=== PATIENT | female | born 1950 | race Asian ===

== ENCOUNTER 2017-01-12 13:17 | Outpatient (CLI) | payer MEDICARE | END 2017-01-12 13:18 | disposition home or self-care (01) | DX: Z12.31 Encounter for screening mammogram for malignant neoplasm of breast (principal) ==

== ENCOUNTER 2017-06-15 09:30 | Outpatient (CLI) | payer MEDICARE ==
[2017-06-15 14:14] LABS: ALBUMIN/GLOBULIN RATIO 1.4 (1.0-2.2); BILIRUBIN,TOTAL 0.6 mg/dL (0.2-1.0); BUN - BLOOD UREA NITROGEN 16 mg/dL (6-20); CALCIUM 9.4 mg/dL (8.5-10.3); CARBON DIOXIDE - CO2 29 mmol/L (21-32); CHLORIDE 102 mmol/L (101-111); CHOLESTEROL 225 mg/dL; CREATININE 0.8 mg/dL (0.4-1.0); GFR - MDRD 72 (>89); GLUCOSE 98 mg/dL (70-100); HDL CHOLESTEROL 32 mg/dL; LDL/HDL RATIO 5.1 (<4.4); POTASSIUM 3.8 mmol/L (3.5-5.0); SODIUM 140 mmol/L (135-145); TOTAL PROTEIN 7.2 g/dL (6.7-8.2); TRIGLYCERIDES 150 mg/dL; VLDL CHOLESTEROL 30 mg/dL
== END 2017-06-15 09:31 | disposition home or self-care (01) ==
LOC: LAB.WCP 09:30
PROVIDERS: ATTEND Family Medicine
DX: K30 Functional dyspepsia (principal); I10 Essential (primary) hypertension; E78.5 Hyperlipidemia, unspecified
CPT/HCPCS: 36415; 80053; 80061

== ENCOUNTER 2017-09-10 16:42 | Outpatient (CLI) | payer MEDICARE ==
[2017-09-10 13:48] LABS: ALBUMIN/GLOBULIN RATIO 1.2 (1.0-2.2); BILIRUBIN,TOTAL 0.8 mg/dL (0.2-1.0); CALCIUM 9.7 mg/dL (8.5-10.3); CREATININE 0.8 mg/dL (0.4-1.0); POTASSIUM 4.5 mmol/L (3.5-5.0); TOTAL PROTEIN 7.9 g/dL (6.7-8.2)
== END 2017-09-10 16:43 | disposition home or self-care (01) ==
LOC: LAB.WCP 16:42
PROVIDERS: ATTEND Family Medicine
DX: E88.81 Metabolic syndrome and other insulin resistance (principal); I10 Essential (primary) hypertension; E78.9 Disorder of lipoprotein metabolism, unspecified
CPT/HCPCS: 36415; 80053

== ENCOUNTER 2018-03-21 08:00 | Outpatient (CLI) | payer MEDICARE ==
[2018-03-21 13:52] LABS: ALBUMIN 3.8 g/dL (3.2-5.5); ALKALINE PHOSPHATASE 95 IU/L (42-121); ALT ALANINE AMINOTRANSFERASE 20 IU/L (10-60); AST ASPARTATE AMINOTRANSFERASE 25 IU/L (10-42); BUN - BLOOD UREA NITROGEN 10 mg/dL (6-20); CALCIUM 9.5 mg/dL (8.5-10.3); CARBON DIOXIDE - CO2 30 mmol/L (21-32); CHLORIDE 105 mmol/L (101-111); CHOL/HDL RATIO 7.1 (<4.4); CHOLESTEROL 240 mg/dL; CREATININE 0.7 mg/dL (0.4-1.0); GFR - MDRD 83 (>89); GLUCOSE 94 mg/dL (70-100); HDL CHOLESTEROL 34 mg/dL; LDL CHOLESTEROL,CALCULATED 148 mg/dL; LDL/HDL RATIO 4.4 (<4.4); SODIUM 140 mmol/L (135-145); TOTAL PROTEIN 7.6 g/dL (6.7-8.2); URIC ACID 6.9 mg/dL (2.6-7.2); VLDL CHOLESTEROL 58 mg/dL
== END 2018-03-21 08:01 | disposition home or self-care (01) ==
LOC: LAB.WCP 08:00
PROVIDERS: ATTEND Family Medicine
DX: R60.0 Localized edema (principal); E88.81 Metabolic syndrome and other insulin resistance; R74.8 Abnormal levels of other serum enzymes; I10 Essential (primary) hypertension; E78.5 Hyperlipidemia, unspecified
CPT/HCPCS: 36415; 80053; 80061; 83721; 84550

== ENCOUNTER 2018-05-02 11:15 | Outpatient (CLI) | payer MEDICARE ==
--- NOTE | 2018-05-04 09:25 | Mammography Report ---
Procedure Date: 05/02/2018 Accession Number: [id number] / [id number] Procedure: MGN - Screening Mammo Dig Bilat CPT Code: FULL RESULT: EXAM: Screening Mammo Dig Bilat DATE: 05/02/2018 11:44 AM CLINICAL HISTORY: 68-year-old female presents for screening mammography. TECHNIQUE: Bilateral CC and MLO views were obtained. COMPARISON: 01/12/2017, 12/20/2014, 12/14/2013, 12/06/2012. FINDINGS: The breasts demonstrate heterogeneously dense fibroglandular parenchyma bilaterally. Coarse typically benign calcifications are seen in the right breast. Coarse typically benign calcifications are also seen in the left breast. No suspicious masses, clustered microcalcifications, or regions of architectural distortion are identified. IMPRESSION: Benign findings RECOMMENDATION: Routine annual screening unless otherwise clinically indicated. BIRADS CATEGORY 2: Benign findings STANDARD QUALIFYING STATEMENTS: 1. This examination was reviewed with the aid of Computer-Aided Detection (CAD). 2. A negative or benign imaging report should not delay biopsy if clinically suspicious findings are present. Consider surgical consultation if warrented. More than 5% of cancers are not identified by imaging. 3. Dense breasts may obscure an underlying neoplasm.
== END 2018-05-02 11:16 | disposition home or self-care (01) ==
LOC: DI.N 11:15
PROVIDERS: ATTEND Family Medicine
DX: Z12.31 Encounter for screening mammogram for malignant neoplasm of breast (principal)
CPT/HCPCS: 77067

== ENCOUNTER 2018-10-03 08:00 | Outpatient (CLI) | payer MEDICARE ==
[2018-10-03 15:30] LABS: ALBUMIN 4.3 g/dL (3.2-5.5); ALBUMIN/GLOBULIN RATIO 1.4 (1.0-2.2); BILIRUBIN,TOTAL 0.8 mg/dL (0.2-1.0); CALCIUM 9.5 mg/dL (8.5-10.3); CREATININE 0.8 mg/dL (0.4-1.0); TOTAL PROTEIN 7.4 g/dL (6.7-8.2)
== END 2018-10-03 23:59 | disposition home or self-care (01) ==
LOC: LAB.WCP 08:00
PROVIDERS: ATTEND Family Medicine
DX: E78.5 Hyperlipidemia, unspecified (principal)
CPT/HCPCS: 36415; 80053

== ENCOUNTER 2018-12-13 15:05 | Outpatient (CLI) | payer MEDICARE ==
--- NOTE | 2018-12-15 08:36 | DEXA Report ---
Reason: ASYMPTOMATIC POSTMENOPAUSAL STATUS Procedure Date: 12/13/2018 Accession Number: [id number] / [id number] Procedure: DEX - Dexa Spine and/or Hip CPT Code: FULL RESULT: EXAM: Dexa Spine and/or Hip DATE: 12/13/2018 3:39 PM CLINICAL HISTORY: ASYMPTOMATIC POSTMENOPAUSAL STATUS TECHNIQUE: Dual energy x-ray absorptiometry (DXA) was performed on a Forward Talent System. Regions measured are the AP Spine, femoral neck, and if needed forearm. COMPARISON: None. In accordance with the International Society for Clinical Densitometry (ISCD) guidelines, data from previous exams may be reanalyzed using current recommendations and techniques. This is done to allow a more accurate basis for comparison with the current study. FINDINGS: The data for the lumbar spine is as follows: BMD (g/cm/cm) T-SCORE Z-SCORE REGION L1 0.772 -3.0 -1.3 L2 0.910 -2.4 -0.7 L3 0.885 -2.6 -0.9 L4 0.960 -2.0 -0.3 TOTAL 0.879 -2.5 -0.8 NOTE: All evaluable vertebrae are used for classification The data for the hip is as follows: BMD (g/cm/cm) T-SCORE Z-SCORE REGION Neck 0.720 -2.3 -0.6 TOTAL 0.784 -1.8 -0.3 NOTE: The femoral neck or total proximal femur, whichever is lowest, is used for classification. IMPRESSION: THE WHO CLASSIFICATION BASED ON THE INTERNATIONAL REFERENCE STANDARD IS OSTEOPOROSIS. THE FRACTURE RISK IS HIGH. RECOMMENDATION: Patients with diagnosis of osteoporosis or osteopenia should have regular bone mineral density assessment. For those eligible for Medicare, routine testing is allowed once every 2 years. Testing frequency can be increased for patients who have rapidly progressing disease or for those who are receiving medical therapy to restore bone mass. COMMENT: World Health Organization (WHO) definitions for osteoporosis and osteopenia: NORMAL BMD: T-score at -1.0 or higher, fracture risk is low OSTEOPENIA BMD: T-score between -1.0 and -2.5, fracture risk is increased. OSTEOPOROSIS BMD: T-score at -2.5 or lower, fracture risk is high. National Osteoporosis Foundation recommends: 1. Obtain adequate dietary calcium (at least 1200 mg per day) and vitamin D (400-800 international units per day). 2. Participate, as appropriate, in regular weightbearing and muscle-strengthening exercise. 3. Avoid tobacco use and reduce alcohol and caffeine intake. 4. For more detailed information see the website at www.NOF.org.
== END 2018-12-13 15:06 | disposition home or self-care (01) ==
LOC: DI 15:05
PROVIDERS: ATTEND Family Medicine
DX: M81.0 Age-related osteoporosis without current pathological fracture (principal)
CPT/HCPCS: 77080

== ENCOUNTER 2019-04-26 09:07 | Outpatient (CLI) | payer MEDICARE ==
[2019-04-26 12:08] LABS: BASOPHILS # (AUTO) 0.1 10^3/uL (0.0-0.1); BASOPHILS % (AUTO) 1.1 %; EOSINOPHILS # (AUTO) 0.3 10^3/uL (0.0-0.7); EOSINOPHILS % (AUTO) 4.5 %; HGB - HEMOGLOBIN 12.9 g/dL (12.0-16.0); LYMPHOCYTES # (AUTO) 3.8 10^3/uL (1.5-3.5); LYMPHOCYTES % (AUTO) 56.6 %; MEAN CORPUSCULAR HEMOGLOBIN 32.3 pg (27.0-31.0); MEAN CORPUSCULAR HGB CONC 32.6 g/dL (32.0-36.0); MEAN CORPUSCULAR VOLUME 99.2 fL (81.0-99.0); MEAN PLATELET VOLUME 11.1 fL (7.9-10.8); MONOCYTES # (AUTO) 0.4 10^3/uL (0.0-1.0); MONOCYTES % (AUTO) 6.5 %; NEUTROPHILS # (AUTO) 2.1 10^3/uL (1.5-6.6); NEUTROPHILS % (AUTO) 31.1 %; PLT - PLATELET COUNT 208 10^3/uL (130-450); RED BLOOD COUNT 3.99 10^6/uL (4.20-5.40); RED CELL DISTRIBUTION WIDTH 11.9 % (12.0-15.0); WHITE BLOOD COUNT 6.6 x10^3/uL (4.8-10.8)
[2019-04-26 12:25] LABS: ALBUMIN 4.3 g/dL (3.2-5.5); ALBUMIN/GLOBULIN RATIO 1.4 (1.0-2.2); ALKALINE PHOSPHATASE 87 IU/L (42-121); ALT ALANINE AMINOTRANSFERASE 17 IU/L (10-60); AST ASPARTATE AMINOTRANSFERASE 22 IU/L (10-42); BILIRUBIN,TOTAL 0.8 mg/dL (0.2-1.0); BUN - BLOOD UREA NITROGEN 16 mg/dL (6-20); CALCIUM 9.7 mg/dL (8.5-10.3); CARBON DIOXIDE - CO2 27 mmol/L (21-32); CHLORIDE 108 mmol/L (101-111); CHOL/HDL RATIO 4.3 (<4.4); CHOLESTEROL 138 mg/dL; CREATININE 0.8 mg/dL (0.4-1.0); GFR - MDRD 71 (>89); GLUCOSE 96 mg/dL (70-100); HDL CHOLESTEROL 32 mg/dL; LDL CHOLESTEROL,CALCULATED 82 mg/dL; LDL/HDL RATIO 2.6 (<4.4); SODIUM 145 mmol/L (135-145); TOTAL PROTEIN 7.4 g/dL (6.7-8.2); URIC ACID 6.8 mg/dL (2.6-7.2); VLDL CHOLESTEROL 24 mg/dL
== END 2019-04-26 09:08 | disposition home or self-care (01) ==
LOC: LAB.WCP 09:07
PROVIDERS: ATTEND Family Medicine
DX: I10 Essential (primary) hypertension (principal); E78.5 Hyperlipidemia, unspecified; R73.01 Impaired fasting glucose; D64.9 Anemia, unspecified
CPT/HCPCS: 36415; 80053; 80061; 83721; 84443; 84550; 85025

== ENCOUNTER 2019-05-05 13:05 | Outpatient (CLI) | payer MEDICARE | END 2019-05-05 23:59 | disposition home or self-care (01) | LOC: LAB.WCP 13:05 | PROVIDERS: ATTEND Family Medicine | DX: M81.0 Age-related osteoporosis without current pathological fracture (principal) | CPT/HCPCS: 36415; 82306 ==

== ENCOUNTER 2019-05-15 11:07 | Outpatient (CLI) | payer MEDICARE ==
--- NOTE | 2019-05-16 08:39 | Mammography Report ---
Reason: SCREENING MAMMO Procedure Date: 05/15/2019 Accession Number: [id number] / [id number] Procedure: MGN - Screening Mammo Dig Bilat CPT Code: FULL RESULT: EXAM: Screening Mammo Dig Bilat DATE: 05/15/2019 11:35 AM CLINICAL HISTORY: Screening encounter. TECHNIQUE: (B) - Bilateral CC and MLO views were obtained. COMPARISON: 05/02/2018 through 12/14/2013. PARENCHYMAL PATTERN: (A) - The breast(s) demonstrate(s) scattered fibroglandular densities. FINDINGS: There are no suspicious masses, calcifications, or areas of distortion. IMPRESSION: Negative examination. BI-RADS category 1. RECOMMENDATION: (ANNUAL) - Recommend routine annual screening mammography. BI-RADS CATEGORY: (1) - Negative. STANDARD QUALIFYING STATEMENTS: 1. This examination was not reviewed with the aid of Computer-Aided Detection (CAD). 2. A negative or benign imaging report should not preclude biopsy if clinically suspicious findings are present. 3. Dense breasts may obscure an underlying neoplasm. 4. This examination was reviewed without the aid of 3D breast imaging (tomosynthesis).
== END 2019-05-15 11:08 | disposition home or self-care (01) ==
LOC: DI.N 11:07
PROVIDERS: ATTEND Family Medicine
DX: Z12.31 Encounter for screening mammogram for malignant neoplasm of breast (principal)
CPT/HCPCS: 77067

== ENCOUNTER 2019-11-20 07:31 | Outpatient (CLI) | payer MEDICARE ==
--- NOTE | 2019-11-21 08:22 | Ultrasound Report ---
Reason: GROIN PAIN LT Procedure Date: 11/20/2019 Accession Number: [id number] / [id number] Procedure: US - Pelvic Limited or F/U CPT Code: Final Report FULL RESULT: EXAM: Limited pelvic ultrasound EXAM DATE: 11/20/2019 08:54 AM. CLINICAL HISTORY: Groin pain, left. COMPARISON: None. TECHNIQUE: Real-time scanning was performed of the left groin with static images obtained. FINDINGS: Scan focused on the left inguinal canal area. No inguinal hernia was identified. No free fluid. No enlarged lymph nodes are identified. IMPRESSION: No inguinal hernia detected. RADIA
== END 2019-11-20 07:32 | disposition home or self-care (01) ==
LOC: DI 07:31
PROVIDERS: ATTEND Physician Assistant
DX: R10.32 Left lower quadrant pain (principal)
CPT/HCPCS: 76857

== ENCOUNTER 2020-01-02 08:00 | Outpatient (CLI) | payer MEDICARE | END 2020-01-02 23:59 | disposition home or self-care (01) | LOC: LAB.WCP 08:00 | PROVIDERS: ATTEND Family Medicine | DX: R31.9 Hematuria, unspecified (principal) | CPT/HCPCS: 87086 ==

== ENCOUNTER 2020-01-31 08:00 | Outpatient (CLI) | payer MEDICARE | END 2020-01-31 23:59 | disposition home or self-care (01) | LOC: LAB.WCP 08:00 | PROVIDERS: ATTEND Family Medicine | DX: R10.2 Pelvic and perineal pain (principal) | CPT/HCPCS: 81002 ==

== ENCOUNTER 2020-11-07 14:18 | Outpatient (CLI) | payer MEDICARE ==
--- NOTE | 2020-11-08 09:53 | Mammography Report ---
BILATERAL DIGITAL SCREENING MAMMOGRAM 3D/2D: 11/07/2020 CLINICAL: Routine screening. Comparison is made to exams dated: 05/15/2019 mammogram, 05/02/2018 mammogram, 01/12/2017 mammogram, 12/20 mammogram, 12/14/2013 mammogram, and 12/19/2012 mammogram - [facility]. The tis charleen of both breasts is predominantly fatty. No significant masses, calcifications, or other findings are seen in either breast. There has been no significant interval change. IMPRESSION: NEGATIVE There is no mammographic evidence of malignancy. A 1 year screening mammogram is recommended. This exam was interpreted at Station ID: [id number]. NOTE: For mammograms, a report in lay terms will be sent to the patient. Approximately 15% of breast malignancies will not be visualized mammographically. In the management of a palpable breast mass, a negative mammogram must not discourage biopsy of a clinically suspicious lesion. Electronically Signed By: Raji Stein acr/penrad:11/07/2020 16:08:53 ACR BI-RADS Category 1: Negative 3341F PARENCHYMAL PATTERN: (F) - The breast(s) demonstrate(s) diffuse fatty replacement. BI-RADS CATEGORY: (1) - 1 RECOMMENDATION: (ANNUAL) - Recommend routine annual screening mammography. [id number] 1 year screening LATERALITY: (B)
== END 2020-11-07 14:19 | disposition home or self-care (01) ==
LOC: DI.N 14:18
PROVIDERS: ATTEND Family Medicine
DX: Z12.31 Encounter for screening mammogram for malignant neoplasm of breast (principal)

== ENCOUNTER 2020-11-27 17:44 | Emergency (ER) | payer MEDICARE ==
--- NOTE | 2020-11-27 19:11 | ED Physician Documentation ---
History of Present Illness - Stated complaint Stated Complaint: PELVIC PX - Chief complaint Chief Complaint: Abd Pain - History obtained from History obtained from: Patient - History of Present Illness Pain level max: 5 Pain level now: 4 - Additonal information Additional information: Patient is a 70-year-old female who presents to the emergency department stating that she has had intermittent pelvic pain for the last year. She states she saw her doctor and had something "removed" from her vaginal area. She does not know what the diagnosis was. She states she had an ultrasound that was reportedly normal. She states she is having white vaginal discharge as well. No itching. Pain is intermittent. No abdominal pain or swelling. No diarrhea. No constipation. No fevers. No chills. Review of Systems Constitutional: denies: Fever, Chills GI: denies: Vomiting, Diarrhea Skin: denies: Rash Musculoskeletal: denies: Neck pain, Back pain Neurologic: denies: Headache PD PAST MEDICAL HISTORY - Past Medical History Past Medical History: Yes Cardiovascular: Hypertension Respiratory: None Endocrine/Autoimmune: None GI: GERD : None HEENT: None Psych: Anxiety Musculoskeletal: None Derm: None - Past Surgical History Past Surgical History: No - Present Medications Home Medications: Ambulatory Orders Medication Instructions Recorded Confirmed Hydrochlorothiazide 1 mg PO DAILY 03/24/14 07/06/16 Lisinopril 10 mg PO DAILY 03/24/14 07/06/16 Metoprolol Succinate [Toprol Xl] 25 mg PO DAILY 03/24/14 07/06/16 Omeprazole 1 mg PO DAILY 03/24/14 07/06/16 Potassium Chloride [Klor-Con M20] 1 meq PO DAILY 03/24/14 07/06/16 Simvastatin 20 mg PO DAILY 03/24/14 07/06/16 clonazePAM [KlonoPIN] 1 mg PO BID 03/24/14 07/06/16 - Allergies Allergies/Adverse Reactions: Allergies Allergy/AdvReac Type Severity Reaction Status Date / Time aspirin AdvReac Emesis Verified 11/27/20 17:51 - Social History Does the pt smoke?: No Smoking Status: Never smoker Does the pt drink ETOH?: No Does the pt have substance abuse?: No PD ED PE NORMAL - Vitals Vital signs reviewed: Yes - General General: Alert and oriented X 3, No acute distress, Well developed/nourished - HEENT HEENT: Moist mucous membranes - Neck Neck: Supple, no meningeal sign - Cardiac Cardiac: RRR - Respiratory Respiratory: No respiratory distress, Clear bilaterally - Abdomen Abdomen: Soft, Non tender, Non distended - Female Female : Computer System Validation Specialist present, Other (Normal pelvic examination, performed with RNIda) - Derm Derm: Warm and dry - Extremities Extremities: No edema - Neuro Neuro: Alert and oriented X 3 - Psych Psych: Normal mood, Normal affect Results - Vitals Vitals: Vital Signs - 24 hr 11/27/20 11/27/20 20:53 22:15 Temperature 36.5 C Heart Rate 61 62 Respiratory 16 18 Rate Blood Pressure 149/65 H 147/77 H O2 Saturation 99 97 Oxygen O2 Source Room air - Labs Labs: Laboratory Tests 11/27/20 11/27/20 11/27/20 18:50 19:08 19:08 WBC 6.0 RBC 4.06 L Hgb 13.7 Hct 41.2 MCV 101.5 H MCH 33.7 H MCHC 33.3 RDW 11.3 L Plt Count 227 MPV 9.6 Neut # (Auto) 3.2 Lymph # (Auto) 2.2 [place] # (Auto) 0.4 Eos # (Auto) 0.1 Baso # (Auto) 0.1 Absolute Nucleated RBC 0.00 Nucleated RBC % 0.0 Sodium 142 Potassium 3.6 Chloride 101 Carbon Dioxide 27 Anion Gap 14.0 H BUN 12 Creatinine 0.7 Estimated GFR (MDRD) 83 L Glucose 112 H Calcium 9.6 Urine Color Urine Clarity Urine pH Ur Specific Perry Urine Protein Urine Glucose (UA) Urine Ketones Urine Occult Blood Urine Nitrite Urine Bilirubin Urine Urobilinogen Ur Leukocyte Esterase Ur Microscopic Review Urine Culture Comments C. glabrata (PCR) NEGATIVE C. krusei (PCR) NEGATIVE Shelley species DNA NEGATIVE T. vaginalis (PCR) NEGATIVE Bact Vaginosis (PCR) NEGATIVE 11/27/20 19:50 WBC RBC Hgb Hct MCV MCH MCHC RDW Plt Count MPV Neut # (Auto) Lymph # (Auto) [place] # (Auto) Eos # (Auto) Baso # (Auto) Absolute Nucleated RBC Nucleated RBC % Sodium Potassium Chloride Carbon Dioxide Anion Gap BUN Creatinine Estimated GFR (MDRD) Glucose Calcium Urine Color YELLOW Urine Clarity CLEAR Urine pH 6.0 Ur Specific Perry 1.015 Urine Protein NEGATIVE Urine Glucose (UA) NEGATIVE Urine Ketones NEGATIVE Urine Occult Blood NEGATIVE Urine Nitrite NEGATIVE Urine Bilirubin NEGATIVE Urine Urobilinogen 0.2 (NORMAL) Ur Leukocyte Esterase NEGATIVE Ur Microscopic Review NOT INDICATED Urine Culture Comments NOT INDICATED C. glabrata (PCR) C. krusei (PCR) Shelley species DNA T. vaginalis (PCR) Bact Vaginosis (PCR) - Rads (name of study) Pelvic ultrasound Radiology: Prelim report reviewed, EMP read contemporaneously, See rad report PD MEDICAL DECISION MAKING - ED course Complexity details: reviewed results, re-evaluated patient, considered differential, d/w patient ED course: 70-year-old female with pelvic pain ongoing for the past year. She has a thickened endometrium with multiple cystic structures and internal flow, abnormal for postmenopausal female. Recommend a endometrial biopsy. No acute findings on laboratory testing or swabs. Patient is well-appearing, nontoxic. Afebrile. We will have her follow-up with her doctor for the endometrial biopsy. Patient counseled regarding signs and symptoms for which I believe and urgent re-evaluation would be necessary. Patient with good understanding of and agreement to plan and is comfortable going home at this time This document was made in part using voice recognition software. While efforts are made to proofread this document, sound alike and grammatical errors may occur. IMPRESSION: 1. Thickened endometrium with multiple cystic structures and internal flow, which is considered abnormal in a postmenopausal female and may be secondary to endometrial polyps, endometrial hyperplasia, or endometrial carcinoma. Cysts can be seen in the setting of tamoxifen therapy. Consider endometrial biopsy for further evaluation. 2. Multiple uterine fibroids, the largest measures up to 3.2 cm. A possible pedunculated right subserosal fibroid measures 2.5 cm in maximum dimension. Departure - Departure Disposition: 01 Home, Self Care Clinical Impression: Pelvic pain Condition: Good Instructions: ED Pelvic Pain [facility] Follow-Up: [facility] [Provider Group] [facility] [Provider Group] Comments: You need to call the clinic tomorrow in order to schedule a follow-up appointment within 1 week. You need to be referred to gynecology for an endometrial biopsy. Your pelvic ultrasound is abnormal. This referral should be urgent, within the next 1 to 2 weeks. Return if you worsen. Ultrasound: FINDINGS: No pathologic free abdominal or pelvic fluid. Uterus: Uterus is normal in size at 8.4 x 5.1 x 6.1 cm. The endometrium measures 2.4 cm in combined thickness. Cystic foci and internal endometrial flow are noted. Multiple fibroids are seen in the uterus. The largest is a left anterior intramural and subserosal fibroid measuring 3.2 x 2.6 x 2.4 cm. A pedunculated right anterior subserosal fibroid measures 2.5 x 1.7 x 2.1 cm. Ovaries: The ovaries are not well visualized. No suspicious adnexal mass is seen. IMPRESSION: 1. Thickened endometrium with multiple cystic structures and internal flow, which is considered abnormal in a postmenopausal female and may be secondary to endometrial polyps, endometrial hyperplasia, or endometrial carcinoma. Cysts can be seen in the setting of tamoxifen therapy. Consider endometrial biopsy for further evaluation. 2. Multiple uterine fibroids, the largest measures up to 3.2 cm. A possible pedunculated right subserosal fibroid measures 2.5 cm in maximum dimension. Discharge Date/Time: 11/27/20 22:20
[2020-11-27 19:12] LABS: BASOPHILS # (AUTO) 0.1 10^3/uL (0.0-0.1); EOSINOPHILS # (AUTO) 0.1 10^3/uL (0.0-0.7); EOSINOPHILS % (AUTO) 2.3 %; HGB - HEMOGLOBIN 13.7 g/dL (12.0-16.0); LYMPHOCYTES # (AUTO) 2.2 10^3/uL (1.5-3.5); LYMPHOCYTES % (AUTO) 37.1 %; MEAN CORPUSCULAR HEMOGLOBIN 33.7 pg (27.0-31.0); MEAN CORPUSCULAR HGB CONC 33.3 g/dL (32.0-36.0); MEAN CORPUSCULAR VOLUME 101.5 fL (81.0-99.0); MEAN PLATELET VOLUME 9.6 fL (7.9-10.8); MONOCYTES # (AUTO) 0.4 10^3/uL (0.0-1.0); MONOCYTES % (AUTO) 6.5 %; NEUTROPHILS # (AUTO) 3.2 10^3/uL (1.5-6.6); NEUTROPHILS % (AUTO) 52.9 %; PLT - PLATELET COUNT 227 10^3/uL (130-450); RED BLOOD COUNT 4.06 10^6/uL (4.20-5.40); RED CELL DISTRIBUTION WIDTH 11.3 % (12.0-15.0)
[2020-11-27 19:21] LABS: CALCIUM 9.6 mg/dL (8.5-10.3); CREATININE 0.7 mg/dL (0.4-1.0)
[2020-11-27 19:58] LABS: BILIRUBIN,URINE NEGATIVE (NEGATIVE); GLUCOSE, URINE (UA) NEGATIVE (NEGATIVE); KETONES,URINE (UA) NEGATIVE (NEGATIVE); LEUKOCYTE ESTERASE, URINE NEGATIVE (NEGATIVE); NITRITE,URINE NEGATIVE (NEGATIVE); OCCULT BLOOD,URINE NEGATIVE (NEGATIVE); PROTEIN,URINE NEGATIVE (NEGATIVE); UROBILINOGEN,URINE 0.2 (NORMAL) E.U./dL (NORMAL)
[2020-11-27 20:02] LABS: CLARITY,URINE CLEAR (CLEAR)
[2020-11-27 21:02] LABS: CANDIDA GROUP DNA NEGATIVE (NEGATIVE); CANDIDA KRUSEI DNA NEGATIVE (NEGATIVE); TRICHOMONAS VAGINALIS DNA NEGATIVE (NEGATIVE)
--- NOTE | 2020-11-27 21:49 | Ultrasound Report ---
PROCEDURE: Pelvic w/Transvag+Doppler Comp INDICATIONS: pelvic pain TECHNIQUE: Real-time scanning was performed of the pelvic organs, with image documentation. Additional endovagi nal scanning was necessary due to incomplete visualization of the adnexal and endometrial structures by transabdominal scanning. COMPARISON: None. FINDINGS: No pathologic free abdominal or pelvic fluid. Uterus: Uterus is normal in size at 8.4 x 5.1 x 6.1 cm. The endometrium measures 2.4 cm in combined thickness. Cystic foci and internal endometrial flow are noted. Multiple fibroids are seen in the u terus. The largest is a left anterior intramural and subserosal fibroid measuring 3.2 x 2.6 x 2.4 cm. A pedunculated right anterior subserosal fibroid measures 2.5 x 1.7 x 2.1 cm. Ovaries: The ovaries are not well visualized. No suspicious adnexal mass is seen. IMPRESSION: 1. Thickened endometrium with multiple cystic structures and internal flow, which is considered abno rmal in a postmenopausal female and may be secondary to endometrial polyps, endometrial hyperplasia, or endometrial carcinoma. Cysts can be seen in the setting of tamoxifen therapy. Consider endometrial biopsy for further evaluation. 2. Multiple uterine fibroids, the largest measures up to 3.2 cm. A possible pedunculated right subse mirza fibroid measures 2.5 cm in maximum dimension. Reviewed by: Cristian Riley MD on 11/27/2020 9:48 PM PST Approved by: Cristian Riley MD on 11/27/2020 9:48 PM PST Station ID: [id number]
[2020-11-27 22:16] VITALS: BP 147/77
== END 2020-11-27 22:20 | disposition home or self-care (01) ==
LOC: ED 17:44
DX: R10.2 Pelvic and perineal pain (principal); R93.89 Abnormal findings on diagnostic imaging of other specified body structures; D25.1 Intramural leiomyoma of uterus; D25.2 Subserosal leiomyoma of uterus; I10 Essential (primary) hypertension
CPT/HCPCS: 36415; 80048; 81001; 81003; 85025; 87086; 87661; 87801; 93975; 99284

== ENCOUNTER 2020-12-16 08:00 | Outpatient (CLI) | payer MEDICARE ==
[2020-12-16 12:00] LABS: BASOPHILS # (AUTO) 0.1 10^3/uL (0.0-0.1); EOSINOPHILS # (AUTO) 0.4 10^3/uL (0.0-0.7); EOSINOPHILS % (AUTO) 6.9 %; HCT - HEMATOCRIT 40.9 % (37.0-47.0); HGB - HEMOGLOBIN 13.5 g/dL (12.0-16.0); LYMPHOCYTES % (AUTO) 48.9 %; MEAN CORPUSCULAR HEMOGLOBIN 33.5 pg (27.0-31.0); MEAN CORPUSCULAR VOLUME 101.5 fL (81.0-99.0); MEAN PLATELET VOLUME 10.5 fL (7.9-10.8); MONOCYTES # (AUTO) 0.4 10^3/uL (0.0-1.0); MONOCYTES % (AUTO) 7.1 %; NEUTROPHILS # (AUTO) 2.2 10^3/uL (1.5-6.6); NEUTROPHILS % (AUTO) 35.9 %; PLT - PLATELET COUNT 241 10^3/uL (130-450); RED BLOOD COUNT 4.03 10^6/uL (4.20-5.40); RED CELL DISTRIBUTION WIDTH 11.5 % (12.0-15.0); WHITE BLOOD COUNT 6.1 x10^3/uL (4.8-10.8)
[2020-12-16 12:09] LABS: ALBUMIN 4.4 g/dL (3.2-5.5); ALBUMIN/GLOBULIN RATIO 1.4 (1.0-2.2); ALKALINE PHOSPHATASE 73 IU/L (42-121); ALT ALANINE AMINOTRANSFERASE 18 IU/L (10-60); AST ASPARTATE AMINOTRANSFERASE 23 IU/L (10-42); BUN - BLOOD UREA NITROGEN 14 mg/dL (6-20); CALCIUM 9.6 mg/dL (8.5-10.3); CARBON DIOXIDE - CO2 27 mmol/L (21-32); CHLORIDE 104 mmol/L (101-111); CHOL/HDL RATIO 4.5 (<4.4); CHOLESTEROL 143 mg/dL; CREATININE 0.7 mg/dL (0.4-1.0); GFR - MDRD 83 (>89); GLUCOSE 101 mg/dL (70-100); HDL CHOLESTEROL 32 mg/dL; LDL CHOLESTEROL,CALCULATED 75 mg/dL; LDL/HDL RATIO 2.3 (<4.4); POTASSIUM 4.2 mmol/L (3.5-5.0); SODIUM 139 mmol/L (135-145); TOTAL PROTEIN 7.5 g/dL (6.7-8.2); TRIGLYCERIDES 180 mg/dL; VLDL CHOLESTEROL 36 mg/dL
[2020-12-16 12:11] LABS: THYROID STIMULATING HORMONE 2.33 uIU/mL (0.34-5.60)
[2020-12-16 12:30] LABS: ESTIMATED AVERAGE GLUCOSE 105 mg/dL (70-100); HEMOGLOBIN A1c% 5.3 % (4.27-6.07)
== END 2020-12-16 23:59 | disposition home or self-care (01) ==
LOC: LAB.WCP 08:00
PROVIDERS: ATTEND Nurse Practitioner Family
DX: I10 Essential (primary) hypertension (principal); D64.9 Anemia, unspecified; R73.01 Impaired fasting glucose; E78.5 Hyperlipidemia, unspecified
CPT/HCPCS: 36415; 80053; 80061; 83036; 83721; 84443; 85025

== ENCOUNTER 2020-12-30 11:15 | Outpatient (CLI) | payer MEDICARE ==
[2020-12-30 11:37] LABS: BASOPHILS # (AUTO) 0.1 10^3/uL (0.0-0.1); BASOPHILS % (AUTO) 1.2 %; EOSINOPHILS # (AUTO) 0.3 10^3/uL (0.0-0.7); EOSINOPHILS % (AUTO) 3.6 %; HCT - HEMATOCRIT 41.1 % (37.0-47.0); HGB - HEMOGLOBIN 13.8 g/dL (12.0-16.0); LYMPHOCYTES # (AUTO) 3.2 10^3/uL (1.5-3.5); LYMPHOCYTES % (AUTO) 46.8 %; MEAN CORPUSCULAR HEMOGLOBIN 33.4 pg (27.0-31.0); MEAN CORPUSCULAR HGB CONC 33.6 g/dL (32.0-36.0); MEAN CORPUSCULAR VOLUME 99.5 fL (81.0-99.0); MEAN PLATELET VOLUME 9.7 fL (7.9-10.8); MONOCYTES # (AUTO) 0.6 10^3/uL (0.0-1.0); MONOCYTES % (AUTO) 8.8 %; NEUTROPHILS # (AUTO) 2.7 10^3/uL (1.5-6.6); NEUTROPHILS % (AUTO) 39.3 %; PLT - PLATELET COUNT 234 10^3/uL (130-450); RED BLOOD COUNT 4.13 10^6/uL (4.20-5.40); RED CELL DISTRIBUTION WIDTH 11.5 % (12.0-15.0); WHITE BLOOD COUNT 6.9 x10^3/uL (4.8-10.8)
[2020-12-30 11:49] LABS: ALBUMIN 4.3 g/dL (3.2-5.5); ALBUMIN/GLOBULIN RATIO 1.3 (1.0-2.2); BILIRUBIN,TOTAL 1.1 mg/dL (0.2-1.0); CALCIUM 9.4 mg/dL (8.5-10.3); CREATININE 0.6 mg/dL (0.4-1.0); POTASSIUM 3.8 mmol/L (3.5-5.0); TOTAL PROTEIN 7.5 g/dL (6.7-8.2)
== END 2020-12-30 11:16 | disposition home or self-care (01) ==
LOC: LAB 11:15
PROVIDERS: ATTEND Nurse Practitioner Family
DX: Z01.812 Encounter for preprocedural laboratory examination (principal); N95.0 Postmenopausal bleeding; D25.9 Leiomyoma of uterus, unspecified; R93.89 Abnormal findings on diagnostic imaging of other specified body structures; Z20.822 Contact with and (suspected) exposure to COVID-19
CPT/HCPCS: 36415; 80053; 85025; U0004

== ENCOUNTER 2021-01-02 06:11 | Day surgery (SDC) | payer MEDICARE ==
[2021-01-02] MEDS ORDERED: CELECOXIB 100 MG CAPSULE PO ONE (06:24)
[2021-01-02] MEDS ORDERED: GABAPENTIN 400 MG CAPSULE ONE (06:24)
[2021-01-02] MEDS ORDERED: ACETAMINOPHEN 1,000 MG/100 ML 100 ML IV ONE (06:25)
[2021-01-02] MEDS ORDERED: ceFAZolin 2 GM/50 ML 2 GM/50 ML BAG IV ONE (06:25)
[2021-01-02] MEDS ORDERED: BUPIVACAINE 0.25% PF 30 ML VIAL ONE (06:59)
[2021-01-02] MEDS ORDERED: LIDOCAINE 2%-EPI 1:100000 20 ML MDV ONE (06:59)
[2021-01-02] MEDS ORDERED: SILVER NITRATE APPLICATOR TOP ONE (06:59)
[2021-01-02] MEDS ORDERED: LACTATED RINGERS 1,000 ML IV ONE ×2 (07:05→09:17)
[2021-01-02] MEDS ORDERED: LIDOCAINE 2%-EPI 1:100000 20 ML MDV SUBQ ONE ×2 (07:16)
[2021-01-02] MEDS ORDERED: BUPIVACAINE 0.25% PF 30 ML VIAL SUBQ ONE ×2 (07:16)
--- NOTE | 2021-01-02 07:32 | ANESTHESIA ---
Pre-Anesthesia VS, & Labs - Diagnosis post-menopausal bleeding - Procedure hysteroscopy, D&C, myosure Vital Signs: Temp Pulse Resp BP Pulse Ox 36.6 C 58 L 20 132/67 H 99 01/02/21 06:35 01/02/21 06:35 01/02/21 06:35 01/02/21 06:35 01/02/21 06:35 Height: 4 ft 9 in Weight (kg): 64.3 kg Body Mass Index: 30.7 BMI Classification: Obese - NPO >8 hours - Is Patient ?: No - Lab Results Current Lab Results: Laboratory Tests 01/02/21 07:02: POC Whole Bld Glucose 100 Lab results reviewed: Yes Home Medications and Allergies Home Medications: Ambulatory Orders Furosemide [Lasix] 1 tab ORAL DAILY 01/02/21 Losartan [Cozaar] 1 tab ORAL DAILY 01/02/21 Hydrochlorothiazide 1 mg PO DAILY 03/24/14 Metoprolol Succinate [Toprol Xl] 25 mg PO DAILY 03/24/14 Omeprazole 1 mg PO DAILY 03/24/14 Potassium Chloride [Klor-Con M20] 1 meq PO DAILY 03/24/14 Simvastatin 20 mg PO DAILY 03/24/14 clonazePAM [KlonoPIN] 0.5 mg PO BID 03/24/14 Furosemide [Lasix] 1 tab ORAL DAILY 01/02/21 Losartan [Cozaar] 1 tab ORAL DAILY 01/02/21 Allergies/Adverse Reactions: Allergies Allergy/AdvReac Type Severity Reaction Status Date / Time aspirin AdvReac Emesis Verified 11/27/20 17:51 Anes History & Medical History - Anesthetic History Anesthesia Complications: reports: No previous complications Family history of Anesthesia Complications: Denies Family history of Malignant Hyperthermia: Denies - Medical History Cardiovascular: reports: Hypertension Pulmonary: reports: None Gastrointestinal: reports: None Urinary: reports: Kidney stones Musculoskeletal: reports: Osteoarthritis Endocrine/Autoimmune: reports: None Skin: reports: None Smoking Status: Never smoker Exam General: Alert, Oriented x3, Cooperative Dental: WNL Mouth Openin Fingerbreadth Neck Mobility: Normal Mallampati classification: II Thyromental Distance: 4-6 cm Respiratory: Lungs clear, Normal breath sounds Cardiovascular: Regular rate Mental/Cognitive Status: Alert/Oriented X3, Normal for patient Cognitive Status: Within normal limits Plan Anesthesia Type: General (backup), MAC Consent for Procedure(s) Verified and Reviewed: Yes Code Status: Attempt Resuscitation ASA classification: 2-Mild systemic disease Is this case an emergency?: No
[2021-01-02] MEDS ORDERED: MORPHINE 2 MG/ML CARPUJECT IVP PRN (07:33)
[2021-01-02] MEDS ORDERED: HYDROmorphone 0.5 MG/0.5 ML SYRINGE IVP PRN (07:33)
[2021-01-02] MEDS ORDERED: METOCLOPRAMIDE 10 MG/2 ML VIAL IVP PRN (07:33)
[2021-01-02] MEDS ORDERED: ONDANSETRON 4 MG/2 ML VIAL IVP PRN ×2 (07:33→09:08)
[2021-01-02] MEDS ORDERED: ePHEDrine 50 MG/ML VIAL IVP PRN (07:33)
[2021-01-02] MEDS ORDERED: ATROPINE ABBOJECT 1 MG/10 ML SYRINGE IVP PRN (07:33)
[2021-01-02] MEDS ORDERED: MIDAZOLAM 2 MG/2 ML VIAL ONE (07:33)
[2021-01-02] MEDS ORDERED: NALOXONE 0.4 MG/ML VIAL IVP PRN (07:33)
[2021-01-02] MEDS ORDERED: fentaNYL 100 MCG/2 ML VIAL IVP PRN (07:33)
[2021-01-02] MEDS ORDERED: fentaNYL 100 MCG/2 ML VIAL ONE (07:34)
[2021-01-02] MEDS ORDERED: LIDOCAINE-MPF 2% 5 ML VIAL ONE (07:34)
[2021-01-02] MEDS ORDERED: PROPOFOL 200 MG/20 ML VIAL IVP ONE (07:34)
[2021-01-02] MEDS ORDERED: LACTATED RINGERS 1,000 ML IV SCH (08:00)
[2021-01-02] MEDS ORDERED: ONDANSETRON 4 MG/2 ML VIAL ONE (08:28)
[2021-01-02] MEDS ORDERED: DEXAMETHASONE 4 MG/ML VIAL ONE (08:28)
[2021-01-02] MEDS ORDERED: ePHEDrine 50 MG/ML VIAL IVP ONE (08:38)
[2021-01-02] MEDS ORDERED: oxyCODONE 5 MG TABLET PO PRN (09:08)
[2021-01-02] MEDS ORDERED: LORazepam 2 MG/ML VIAL IVP PRN (09:08)
--- NOTE | 2021-01-02 09:14 | OPERATIVE REPORT ---
Operative Report - General Procedure Date: 01/02/21 Planned Procedure: HYSTERSCOPY WITH MYOSURE Pre-Op Diagnosis: ENDOMETRIAL POLYP Procedure Performed: SAME Post Op Diagnosis: SAME - Procedure Note Primary Surgeon: Pepe Adam MD Anesthesia Provider: Abi Del Castillo CRNA Anesthesia Technique: General LMA Pathology: endometrial polyp IV Fluids (mL): 650 Estimated Blood Loss (mL): 25 Complications: myosure machine jumped from 500 ml to 800 ml.
[2021-01-02 09:34] LABS: CALCIUM 8.9 mg/dL (8.5-10.3); CREATININE 0.8 mg/dL (0.4-1.0); POTASSIUM 3.8 mmol/L (3.5-5.0)
--- NOTE | 2021-01-02 09:34 | OPERATIVE REPORT ---
DATE OF SERVICE: 01/02/2021 Physician: Pepe Adam MD PREOPERATIVE DIAGNOSIS: Endometrial polyp. POSTOPERATIVE DIAGNOSIS: Endometrial polyp. PROCEDURE: Hysteroscopy with MyoSure. SURGEON: Pepe Adam MD. ANESTHESIA: Sisi Del Castillo CRNA. ANESTHETIC: General LMA with paracervical block. ESTIMATED BLOOD LOSS: 25 mL. IV FLUIDS: 250 mL. FLUID DEFICIT: From the MyoSure, initially the machine read 500 and then immediately jumped to 800. FINDINGS: Upon entering the abdominal cavity, there was evidence of multiple large Polyps filling the endometrial cavity. Finishing the procedure, the cavity appeared to be empty of any polyps. DESCRIPTION OF PROCEDURE: Following adequate general anesthesia with LMA, patient was placed in the dorsal lithotomy position in [facility]. At this point, she was prepped and draped in the usual fashion. At this time, a timeout was performed, in which concerns were addressed. A speculum was then placed in the vagina. The cervix was visualized, grasped with a single-tooth tenaculum. The cervix had no resistance and dilated all the way up to 7 mm. At this point, the uterosacral ligaments were injected with 5 mL of 0.25% Marcaine with 1% lidocaine with epinephrine. The hysteroscope was then introduced in the endometrial cavity, and the cavity was filled with endometrial polyps. The left fallopian tube orifices could be visualized. The right could not. The MyoSure LITE was initially utilized, and a large volume of polyp was removed. However, it seemed to lose its insufficiency. A polyp forceps was utilized, and minimal endometrial polyp was removed, so the MyoSure heavy was then introduced. The remainder of the endometrial cavity was cleared of polyps all the way down to the surface. At this point, the MyoSure collecting system indicated a jump from 500 mL to 800 mL. The procedure was ended at this time. Estimated blood loss was ascertained. The patient tolerated procedure well and was taken to recovery in stable condition. TD: 01/02/2021 09:21 GAMAL
[2021-01-02 10:08] VITALS: BP 136/64
--- NOTE | 2021-01-02 12:50 | ANESTHESIA POST OP EVALUATION ---
Anesthesia Post Eval - Post Anesthesia Eval Vitals: Last Vital Signs Temp 36.5 C 01/02/21 09:50 Pulse 58 L 01/02/21 10:07 Resp 14 01/02/21 10:07 BP 136/64 H 01/02/21 10:07 Pulse Ox 99 01/02/21 10:07 CV Function Including HR & BP: positive: Stable Pain Control: positive: Satisfactory Nausea & Vomiting: positive: Negative Mental Status: positive: Baseline Respiratory Status: Airway Patent Hydration Status: Satisfactory Anesthesia Complications: positive: None
== END 2021-01-02 06:12 | disposition home or self-care (01) ==
LOC: SDS 06:11
PROVIDERS: ATTEND Obstetrics & Gynecology
PROC: 0UB98ZZ Excision of Uterus, Via Natural or Artificial Opening Endoscopic (ICD-10-PCS; principal; 2021-01-02 07:30)
DX: N84.0 Polyp of corpus uteri (principal); I10 Essential (primary) hypertension; E78.5 Hyperlipidemia, unspecified; F41.9 Anxiety disorder, unspecified; Z87.891 Personal history of nicotine dependence; E66.9 Obesity, unspecified; Z68.30 Body mass index [BMI] 30.0-30.9, adult
CPT/HCPCS: 36415; 58558; 80048; A9270; J0131; J0690; J7120

== ENCOUNTER 2021-09-09 08:00 | Outpatient (CLI) | payer MEDICARE ==
[2021-09-09 18:35] LABS: BASOPHILS # (AUTO) 0.1 10^3/uL (0.0-0.1); BASOPHILS % (AUTO) 0.9 %; EOSINOPHILS # (AUTO) 0.2 10^3/uL (0.0-0.7); EOSINOPHILS % (AUTO) 2.8 %; HCT - HEMATOCRIT 40.7 % (37.0-47.0); HGB - HEMOGLOBIN 13.5 g/dL (12.0-16.0); LYMPHOCYTES # (AUTO) 2.9 10^3/uL (1.5-3.5); LYMPHOCYTES % (AUTO) 45.4 %; MEAN CORPUSCULAR HGB CONC 33.2 g/dL (32.0-36.0); MEAN CORPUSCULAR VOLUME 99.5 fL (81.0-99.0); MEAN PLATELET VOLUME 11.2 fL (7.9-10.8); MONOCYTES # (AUTO) 0.5 10^3/uL (0.0-1.0); MONOCYTES % (AUTO) 7.4 %; NEUTROPHILS # (AUTO) 2.8 10^3/uL (1.5-6.6); NEUTROPHILS % (AUTO) 43.3 %; PLT - PLATELET COUNT 265 10^3/uL (130-450); RED BLOOD COUNT 4.09 10^6/uL (4.20-5.40); RED CELL DISTRIBUTION WIDTH 11.7 % (12.0-15.0); WHITE BLOOD COUNT 6.5 x10^3/uL (4.8-10.8)
[2021-09-09 19:15] LABS: ALBUMIN 4.4 g/dL (3.2-5.5); ALBUMIN/GLOBULIN RATIO 1.2 (1.0-2.2); BILIRUBIN,TOTAL 1.1 mg/dL (0.2-1.0); CREATININE 0.8 mg/dL (0.4-1.0); POTASSIUM 4.3 mmol/L (3.5-5.0)
[2021-09-09 19:18] LABS: FERRITIN 27.5 ng/mL (11.0-306.8)
[2021-09-09 21:34] LABS: ESTIMATED AVERAGE GLUCOSE 114 mg/dL (70-100); HEMOGLOBIN A1c% 5.6 % (4.27-6.07)
== END 2021-09-09 23:59 ==
LOC: LAB.WCP 08:00
PROVIDERS: ATTEND Family Medicine
DX: D64.9 Anemia, unspecified (principal); R73.01 Impaired fasting glucose
CPT/HCPCS: 36415; 80053; 82607; 82728; 83036; 83540; 84466; 85025

== ENCOUNTER 2021-12-17 15:43 | Outpatient (CLI) | payer MEDICARE ==
--- NOTE | 2021-12-17 16:12 | XRAY Report ---
PROCEDURE: Ankle 3 View LT INDICATIONS: L ANKLE PX TECHNIQUE: 3 views of the ankle were acquired. COMPARISON: None. FINDINGS: BONES: No acute, displaced fracture or dislocation. Prominent calcaneal enthesophytes. Os trigonum. The ankle mortise is maintained on these nonstressed views. SOFT TISSUES: No focal abnormality. IMPRESSION: 1.No acute osseous abnormality. Reviewed by: Mat Aguirre MD on 12/17/2021 4:10 PM [facility] Approved by: Mat Aguirre MD on 12/17/2021 4:10 PM [facility] Station ID: [id number]
--- NOTE | 2021-12-17 17:09 | XRAY Report ---
PROCEDURE: Foot 2 View LT INDICATIONS: L ANKLE PX TECHNIQUE: 2 views of the foot were acquired. COMPARISON: None FINDINGS: Bones: No fractures or dislocations. Mild first MTP joint and first through fifth interphalangeal j oint osteoarthritis is seen. Osteoarthritic changes also seen at talonavicular joint and calcaneocubo id joint. There is suggestion of mild pes planus with calcaneal pitch angle measures 13.8 degrees. We ll-defined plantar calcaneal enthesophyte is seen. No suspicious bony lesions. Soft tissues: No tibiotalar joint effusion. Achilles tendon appears normal. IMPRESSION: Mild left foot osteoarthritis as above. No acute fracture or dislocation. Suggestion of mild pes plan us with calcaneal pitch angle measures 13.8 degrees. Reviewed by: Fan Laws MD on 12/17/2021 5:08 PM PST Approved by: Fan Laws MD on 12/17/2021 5:08 PM PST Station ID: [id number]
== END 2021-12-17 15:44 | disposition home or self-care (01) ==
LOC: DI.N 15:43
PROVIDERS: ATTEND Physician Assistant
DX: M25.572 Pain in left ankle and joints of left foot (principal); M21.40 Flat foot [pes planus] (acquired), unspecified foot; M19.072 Primary osteoarthritis, left ankle and foot

== ENCOUNTER 2022-02-11 10:29 | Outpatient (CLI) | payer MEDICARE, MEDICAID ==
--- NOTE | 2022-02-13 16:19 | Mammography Report ---
BILATERAL DIGITAL SCREENING MAMMOGRAM 3D/2D: 02/11/2022 CLINICAL: Routine screening. Comparison is made to exams dated: 11/07/2020 mammogram, 05/15/2019 mammogram, 05/02/2018 mammogram, 01/12 mammogram, 12/20/2014 mammogram, and 12/14/2013 mammogram - [facility]. There a re scattered fibroglandular elements in both breasts. No significant masses, calcifications, or other findings are seen in either breast. There has been no significant interval change. IMPRESSION: NEGATIVE There is no mammographic evidence of malignancy. A 1 year screening mammogram is recommended. This exam was interpreted at Station ID: [id number]. NOTE: For mammograms, a report in lay terms will be sent to the patient. Approximately 15% of breast malignancies will not be visualized mammographically. In the management of a palpable breast mass, a negative mammogram must not discourage biopsy of a clinically suspicious lesion. Electronically Signed By: Roly Davies M.D., jr/edwina:02/11/2022 11:31:22 ACR BI-RADS Category 1: Negative 3341F PARENCHYMAL PATTERN: (A) - The breast(s) demonstrate(s) scattered fibroglandular densities. BI-RADS CATEGORY: (1) - 1 RECOMMENDATION: (ANNUAL) - Recommend routine annual screening mammography. [id number] 1 year screening LATERALITY: (B)
== END 2022-02-11 10:30 | disposition home or self-care (01) ==
LOC: DI.N 10:29
DX: Z12.31 Encounter for screening mammogram for malignant neoplasm of breast (principal)

== ENCOUNTER 2022-07-31 10:51 | Outpatient (CLI) | payer MEDICARE, MEDICAID ==
[2022-07-31 17:58] LABS: BASOPHILS # (AUTO) 0.1 10^3/uL (0.0-0.1); EOSINOPHILS # (AUTO) 0.2 10^3/uL (0.0-0.7); HGB - HEMOGLOBIN 13.6 g/dL (12.0-16.0); LYMPHOCYTES # (AUTO) 2.5 10^3/uL (1.5-3.5); LYMPHOCYTES % (AUTO) 41.4 %; MEAN CORPUSCULAR HEMOGLOBIN 32.8 pg (27.0-31.0); MEAN CORPUSCULAR HGB CONC 32.4 g/dL (32.0-36.0); MEAN CORPUSCULAR VOLUME 101.2 fL (81.0-99.0); MEAN PLATELET VOLUME 10.8 fL (7.9-10.8); MONOCYTES # (AUTO) 0.4 10^3/uL (0.0-1.0); MONOCYTES % (AUTO) 6.2 %; NEUTROPHILS # (AUTO) 2.9 10^3/uL (1.5-6.6); NEUTROPHILS % (AUTO) 48.2 %; PLT - PLATELET COUNT 264 10^3/uL (130-450); RED BLOOD COUNT 4.15 10^6/uL (4.20-5.40); RED CELL DISTRIBUTION WIDTH 11.7 % (12.0-15.0)
[2022-07-31 18:19] LABS: ALBUMIN 4.5 g/dL (3.2-5.5); ALBUMIN/GLOBULIN RATIO 1.5 (1.0-2.2); ALKALINE PHOSPHATASE 78 IU/L (42-121); ALT ALANINE AMINOTRANSFERASE 21 IU/L (10-60); AST ASPARTATE AMINOTRANSFERASE 27 IU/L (10-42); BUN - BLOOD UREA NITROGEN 13 mg/dL (6-20); CALCIUM 9.5 mg/dL (8.5-10.3); CARBON DIOXIDE - CO2 28 mmol/L (21-32); CHLORIDE 105 mmol/L (101-111); CHOL/HDL RATIO 4.3 (<4.4); CHOLESTEROL 160 mg/dL; CREATININE 0.8 mg/dL (0.4-1.0); GFR - MDRD 71 (>89); GLUCOSE 100 mg/dL (70-100); HDL CHOLESTEROL 37 mg/dL; LDL CHOLESTEROL,CALCULATED 92 mg/dL; LDL/HDL RATIO 2.5 (<4.4); POTASSIUM 3.8 mmol/L (3.5-5.0); SODIUM 141 mmol/L (135-145); TOTAL PROTEIN 7.6 g/dL (6.7-8.2); TRIGLYCERIDES 155 mg/dL; VLDL CHOLESTEROL 31 mg/dL
[2022-07-31 18:25] LABS: THYROID STIMULATING HORMONE 1.77 uIU/mL (0.34-5.60)
[2022-08-01 07:08] LABS: HCV AB <0.1 s/co ratio (0.0-0.9)
== END 2022-07-31 10:52 | disposition home or self-care (01) ==
LOC: LAB.N 10:51
PROVIDERS: ATTEND Physician Assistant
DX: Z01.84 Encounter for antibody response examination (principal); I10 Essential (primary) hypertension; E78.5 Hyperlipidemia, unspecified
CPT/HCPCS: 36415; 80053; 80061; 83721; 84443; 85025; 86803

== ENCOUNTER 2022-08-31 07:56 | Outpatient (CLI) | payer MEDICARE, MEDICAID ==
--- NOTE | 2022-08-31 09:26 | DEXA Report ---
PROCEDURE: Dexa Spine and/or Hip INDICATIONS: POST MENOPAUSAL TECHNIQUE: Dual energy x-ray absorptiometry (DXA) was performed on a 51edu System. Regions measur ed are the AP Spine, femoral neck, and if needed forearm. COMPARISON: None. FINDINGS: Lumbar Spine: Bone Mineral Density 0.864 g/cm/cm,T score -2.6, osteoporosis Left Hip: Bone Mineral Density 0.816 g/cm/cm,T score -1.5, osteopenia Left Femoral Neck: Bone Mineral Density 0.696 g/cm/cm, T score -2.5, osteoporosis (T score greater or equal to -1.0: NORMAL) (T score from -1.1 to -2.4: OSTEOPENIA) (T score less than or equal to -2.5 to: OSTEOPOROSIS) Impression: 1. Osteoporosis puts the patient at a high-risk of fracture. Patients with diagnosis of osteoporosis or osteopenia should have regular bone mineral density assess ment. For those eligible for Medicare, routine testing is allowed once every 2 years. Testing frequ ency can be increased for patients who have rapidly progressing disease or for those who are receivin g medical therapy to restore bone mass. Reviewed by: Marilu Blunt MD on 08/31/2022 9:25 AM PST Approved by: Marilu Blunt MD on 08/31/2022 9:25 AM PST Station ID: [id number]
== END 2022-08-31 07:57 | disposition home or self-care (01) ==
LOC: DI 07:56
PROVIDERS: ATTEND Physician Assistant
DX: M81.0 Age-related osteoporosis without current pathological fracture (principal); Z78.0 Asymptomatic menopausal state

== ENCOUNTER 2023-02-18 14:21 | Outpatient (CLI) | payer MEDICARE, MEDICAID ==
--- NOTE | 2023-02-19 09:50 | Mammography Report ---
BILATERAL DIGITAL SCREENING MAMMOGRAM 3D/2D: 02/18/2023 CLINICAL: Routine screening. Comparison is made to exams dated: 02/11/2022 mammogram, 11/07/2020 mammogram, 05/15/2019 mammogram, 05/02 mammogram, and 01/12/2017 mammogram - [facility]. There are scattered areas of fibroglandular density in both breasts (category b / 25%-50% glandular t issue). No significant masses, calcifications, or other findings are seen in either breast. There has been no significant interval change. IMPRESSION: NEGATIVE There is no mammographic evidence of malignancy. A 1 year screening mammogram is recommended. Based on the Tyrer Cuzick model (a risk assessment model) the patients lifetime risk is 3.8% and her 10 year risk is 2.8%. According to the ACR, ACS, and NCCN guidelines, an annual breast MRI exam marilu g with mammogram is recommended if the patients lifetime risk is 20% or greater. This exam was interpreted at Station ID: [id number]. NOTE: For mammograms, a report in lay terms will be sent to the patient. Approximately 15% of breast malignancies will not be visualized mammographically. In the management of a palpable breast mass, a negative mammogram must not discourage biopsy of a clinically suspicious lesion. Electronically Signed By: Jermaine hilliard/edwina:02/19/2023 08:13:07 letter sent: No_Letter ACR BI-RADS Category 1: Negative 3341F PARENCHYMAL PATTERN: (A) - The breast(s) demonstrate(s) scattered fibroglandular densities. BI-RADS CATEGORY: (1) - 1 Mammogram [id number] 1 year screening LATERALITY: (B)
== END 2023-02-18 14:22 | disposition home or self-care (01) ==
LOC: DI.N 14:21
DX: Z12.31 Encounter for screening mammogram for malignant neoplasm of breast (principal)

== ENCOUNTER 2023-10-16 19:11 | Emergency (ER) | payer MEDICAID, MEDICARE ==
[2023-10-16 21:40] LABS: BASOPHILS # (AUTO) 0.1 10^3/uL (0.0-0.1); BASOPHILS % (AUTO) 0.5 %; EOSINOPHILS % (AUTO) 0.2 %; HCT - HEMATOCRIT 42.1 % (37.0-47.0); LYMPHOCYTES % (AUTO) 18.8 %; MEAN CORPUSCULAR HEMOGLOBIN 32.9 pg (27.0-31.0); MEAN CORPUSCULAR HGB CONC 33.3 g/dL (32.0-36.0); MEAN CORPUSCULAR VOLUME 99.1 fL (81.0-99.0); MEAN PLATELET VOLUME 11.1 fL (7.9-10.8); MONOCYTES # (AUTO) 0.4 10^3/uL (0.0-1.0); MONOCYTES % (AUTO) 3.8 %; NEUTROPHILS # (AUTO) 8.2 10^3/uL (1.5-6.6); NEUTROPHILS % (AUTO) 76.4 %; PLT - PLATELET COUNT 204 10^3/uL (130-450); RED BLOOD COUNT 4.25 10^6/uL (4.20-5.40); RED CELL DISTRIBUTION WIDTH 11.6 % (12.0-15.0); WHITE BLOOD COUNT 10.7 x10^3/uL (4.8-10.8)
[2023-10-16] MEDS ORDERED: ONDANSETRON 4 MG/2 ML VIAL IVP STA (21:43)
[2023-10-16] MEDS ORDERED: SODIUM CHLORIDE 0.9% 500 ML IV STA (21:43)
[2023-10-16] MEDS ORDERED: ACETAMINOPHEN 325 MG TABLET PO STA (21:43)
[2023-10-16 21:49] LABS: SLIDE REVIEW? Indicated
[2023-10-16 21:51] LABS: ALBUMIN 4.6 g/dL (3.2-5.5); ALBUMIN/GLOBULIN RATIO 1.5 (1.0-2.2); BILIRUBIN,TOTAL 0.6 mg/dL (0.2-1.0); CALCIUM 9.7 mg/dL (8.5-10.3); CREATININE 0.8 mg/dL (0.6-1.3); POTASSIUM 3.9 mmol/L (3.5-4.5); TOTAL PROTEIN 7.6 g/dL (6.4-8.9)
[2023-10-16 22:23] LABS: PLATELET ESTIMATE, MANUAL NORMAL (130-450,000) (NORMAL); PLATELET MORPHOLOGY 1+ LARGE PLATELETS (NORMAL)
[2023-10-16] MEDS ORDERED: ONDANSETRON ODT 4 MG Prepack 2 TL PRN (23:04)
[2023-10-16 23:23] VITALS: O2SAT 99
--- NOTE | 2023-10-16 23:25 | ED Physician Documentation ---
History of Present Illness - Stated complaint Stated Complaint: VOMITING - Chief complaint Chief Complaint: General - History obtained from History obtained from: Patient - Additonal information Additional information: Pt is a 73 yo F with N/V since yesterday. [place] lightheaded earlier. No diarrhea or abdominal pain. No CP or SOA. Denies known sick contacts. Also reports having runny nose but no cough. Review of Systems Constitutional: denies: Fever Nose: reports: Rhinorrhea / runny nose Cardiac: denies: Chest pain / pressure Respiratory: denies: Dyspnea GI: reports: Nausea, Vomiting. denies: Abdominal Pain : denies: Dysuria PD PAST MEDICAL HISTORY - Past Medical History Cardiovascular: Hypertension Respiratory: None Endocrine/Autoimmune: None GI: GERD : None HEENT: None Psych: Anxiety Musculoskeletal: None Derm: None - Past Surgical History Past Surgical History: No General: Other - Present Medications Home Medications: Ambulatory Orders Medication Instructions Recorded Confirmed Metoprolol Succinate [Toprol Xl] 25 mg PO DAILY 03/24/14 10/16/23 Omeprazole 1 mg PO DAILY 03/24/14 10/16/23 Potassium Chloride [Klor-Con M20] 1 meq PO DAILY 03/24/14 10/16/23 Simvastatin 20 mg PO DAILY 03/24/14 10/16/23 Furosemide [Lasix] 1 tab ORAL DAILY 01/02/21 10/16/23 Losartan [Cozaar] 1 tab ORAL DAILY 01/02/21 10/16/23 Ondansetron Odt [Zofran] 4 mg TL Q6H PRN #10 tablet 10/16/23 - Allergies Allergies/Adverse Reactions: Allergies Allergy/AdvReac Type Severity Reaction Status Date / Time aspirin AdvReac Emesis Verified 10/16/23 19:29 - Social History Does the pt smoke?: No Smoking Status: Never smoker Does the pt drink ETOH?: No Does the pt have substance abuse?: No - POLST Patient has POLST: No PD ED PE NORMAL - General General: Alert and oriented X 3, No acute distress, Well developed/nourished - HEENT HEENT: Atraumatic, Moist mucous membranes, Pharynx benign - Neck Neck: Supple, no meningeal sign - Cardiac Cardiac: RRR, Strong equal pulses - Respiratory Respiratory: No respiratory distress, Clear bilaterally - Abdomen Abdomen: Normal bowel sounds, Soft, Non tender, Non distended - Derm Derm: Warm and dry - Neuro Neuro: Alert and oriented X 3, titrator 2-12 intact, No motor deficit, No sensory deficit, Normal speech, Other (Normal gait) Results - Vitals Vitals: Vital Signs - 24 hr 10/16/23 10/16/23 10/16/23 19:21 21:29 23:33 Temperature 35.8 C L 36.4 C L Heart Rate 76 100 69 Respiratory 18 18 19 Rate Blood Pressure 170/68 H 107/55 L 120/58 L O2 Saturation 97 99 99 Oxygen O2 Source Room air - EKG (time done) 2250 EKG releavant findings:: EKG personally interpreted by author of this note. Relevant findings are: Rate 70, normal sinus rhythm, no STEMI, no ST depressions - Labs Labs: Laboratory Tests 10/16/23 10/16/23 10/16/23 21:20 21:20 21:53 WBC 10.7 RBC 4.25 Hgb 14.0 Hct 42.1 MCV 99.1 H MCH 32.9 H MCHC 33.3 RDW 11.6 L Plt Count 204 MPV 11.1 H Neut # (Auto) 8.2 H Lymph # (Auto) 2.0 [place] # (Auto) 0.4 Eos # (Auto) 0.0 Baso # (Auto) 0.1 Absolute Nucleated RBC 0.00 Nucleated RBC % 0.0 Manual Slide Review Indicated Platelet Estimate NORMAL (130-450,000) Platelet Morphology 1+ LARGE PLATELETS Sodium 136 Potassium 3.9 Chloride 100 L Carbon Dioxide 25 Anion Gap 11.0 BUN 12 Creatinine 0.8 Estimated GFR (MDRD) 70 L Glucose 146 H Calcium 9.7 Total Bilirubin 0.6 AST 28 ALT 25 Alkaline Phosphatase 85 Total Protein 7.6 Albumin 4.6 Globulin 3.0 Albumin/Globulin Ratio 1.5 Lipase 44 Nasal Adenovirus (PCR) NOT DETECTED Nasal B. parapertussis DNA (PCR) NOT DETECTED Nasal Coronavir 229E PCR NOT DETECTED Nasal Coronavir HKU1 PCR NOT DETECTED Nasal Coronavir NL63 PCR NOT DETECTED Nasal Coronavir OC43 PCR NOT DETECTED Nasal Enterovir/Rhinovir PCR NOT DETECTED Nasal Influenza B PCR NOT DETECTED Nasal Influenza A PCR NOT DETECTED Nasal Parainfluen 1 PCR NOT DETECTED Nasal Parainfluen 2 PCR NOT DETECTED Nasal Parainfluen 3 PCR NOT DETECTED Nasal Parainfluen 4 PCR NOT DETECTED Nasal RSV (PCR) NOT DETECTED Nasal B.pertussis DNA PCR NOT DETECTED Nasal C.pneumoniae (PCR) NOT DETECTED Adair Human Metapneumo PCR NOT DETECTED Nasal M.pneumoniae (PCR) NOT DETECTED Nasal SARS-CoV-2 (PCR) NOT DETECTED PD Medical Decision Making - ED course Complexity details: reviewed results, re-evaluated patient, d/w patient ED course: Pt with N/V since yesterday. VSS. Labs including CBC, chemistries reviewed and without significant findings. Abdominal exam benign. No CP or respiratory symptoms. Respiratory swab ordered given reports of runny nose. Pt feeling better with zofran and fluids and would like to go home. Repeat abdominal exam is benign. Pt counseled on continued supportive care as well as concerning symptoms to return for. Departure - Departure Disposition: , Self Care Clinical Impression: Nausea & vomiting Condition: Stable Instructions: ED Nausea Vomiting Prescriptions: Ondansetron Odt [Zofran] 4 mg TL Q6H PRN #10 tablet PRN Reason: Nausea / Vomiting Comments: Your labs are reassuring. I have sent Prescriptions for an antinausea medication to [facility] in [place]. Please start with a bland diet and advance as tolerated. Return to the ER with any worsening such as abdominal pain. Your respiratory panel is pending. This will check for COVID, influenza, RSV and a number of other common cold viruses. We will notify you if it is positive for COVID. Otherwise you can check the patient portal for your results. You should quarantine from others until you know your COVID result. Please continue with acetaminophen or ibuprofen as needed for fevers and body aches, plenty of fluids/hydration and rest. Return to the ER with any worsening symptoms such as difficulty breathing or vomiting. Forms: PCP List Discharge Date/Time: 10/16/23 23:33
[2023-10-16 23:35] LABS: B. PARAPERTUSSIS- RESP PCR PAN NOT DETECTED; B. PERTUSSIS- RESP PCR PANEL NOT DETECTED; C. PNEUMONIAE- RESP PCR PANEL NOT DETECTED; CORONAVIRUS 229E-RESP PCR NOT DETECTED; CORONAVIRUS HKU1-RESP PCR NOT DETECTED; CORONAVIRUS NL63-RESP PCR NOT DETECTED; CORONAVIRUS OC43-RESP PCR NOT DETECTED; HUMAN METAPNEUMOVIRUS NOT DETECTED; INFLUENZA A- RESP PCR PANEL NOT DETECTED; INFLUENZA B - RESP PCR PANEL NOT DETECTED; M. PNEUMONIAE- RESP PCR PANEL NOT DETECTED; PARAINFLUENZA VIRUS 1 NOT DETECTED; PARAINFLUENZA VIRUS 2 NOT DETECTED; PARAINFLUENZA VIRUS 3 NOT DETECTED; PARAINFLUENZA VIRUS 4 NOT DETECTED; RHINOVIRUS/ENTEROVIRUS NOT DETECTED; RSV- RESP PCR PANEL NOT DETECTED; SARS-CoV-2 -RESP PCR PANEL NOT DETECTED
[2023-10-16 23:40] VITALS: BP 120/58
== END 2023-10-16 23:33 | disposition home or self-care (01) ==
LOC: ED 19:11
DX: R11.2 Nausea with vomiting, unspecified (principal)
CPT/HCPCS: 36415; 80053; 83690; 85025; 87633; 93005; 96374; 99283; 99284; A9270

== ENCOUNTER 2023-10-19 04:19 | Inpatient (IN) | payer MEDICARE ==
--- NOTE | 2023-10-19 04:49 | ED Physician Documentation ---
PD HPI HEADACHE - Stated complaint Stated Complaint: HEAD PX - Chief complaint Chief Complaint: Neuro - History obtained from History obtained from: Patient - History of Present Illness Timing - onset: How many days ago (4) Timing - onset during: Light activity Timing - duration: Days Timing - details: Abrupt onset, Still present, Waxing and waning Worst headache ever?: Worst headache ever? (no but is fairly severe) Location: Right, Global Quality: Throbbing, Aching Associated symptoms: Nausea, Vomiting (initially for a day, seen in ER and emesis improved with Zodran. CRAIG less with Tylenol.), Vision changes (mild blurring for weeks), Other (lightheaded and dizzy/vertigo with onset of the headache and nausea.) Improved by: Dark room Worsened by: Light Contributing factors: Hypertension. No: Anticoagulated, Recent illness, Trauma Recently seen: Emergency Dept (seen 3 days ago with the main complaint of nausea/vomiting and lightheaded. Treated with Zofran. ECG and labs were good. Has not vomited the past 3 days but persists nausea, dizziness and headache. No ataxia nor conversation impediment.) Review of Systems Constitutional: denies: Fever, Chills Eyes: reports: Decreased vision, Photophobia. denies: Loss of vision Ears: denies: Loss of hearing, Tinnitus/ringing Nose: reports: Congestion Throat: denies: Sore throat Cardiac: denies: Chest pain / pressure, Palpitations Respiratory: denies: Cough GI: reports: Nausea, Vomiting. denies: Abdominal Pain, Diarrhea Skin: denies: Rash, Lesions Neurologic: reports: Headache. denies: Focal weakness, Numbness, Altered mental status PD PAST MEDICAL HISTORY - Past Medical History Cardiovascular: Hypertension Respiratory: None Endocrine/Autoimmune: None GI: GERD : None HEENT: None Psych: Anxiety Musculoskeletal: None Derm: None - Past Surgical History Past Surgical History: No General: Other - Present Medications Home Medications: Ambulatory Orders Medication Instructions Recorded Confirmed Metoprolol Succinate [Toprol Xl] 25 mg PO DAILY 03/24/14 10/19/23 Omeprazole 1 mg PO DAILY 03/24/14 10/19/23 Potassium Chloride [Klor-Con M20] 1 meq PO DAILY 03/24/14 10/19/23 Furosemide [Lasix] 1 tab ORAL DAILY 01/02/21 10/19/23 Losartan [Cozaar] 1 tab ORAL DAILY 01/02/21 10/19/23 Ondansetron Odt [Zofran] 4 mg TL Q6H PRN #10 tablet 10/16/23 10/19/23 Atorvastatin [Lipitor] 1 tab PO DAILY PM 10/19/23 10/19/23 - Allergies Allergies/Adverse Reactions: Allergies Allergy/AdvReac Type Severity Reaction Status Date / Time aspirin AdvReac Emesis Verified 10/19/23 04:32 - Social History Does the pt smoke?: No Smoking Status: Never smoker Does the pt drink ETOH?: No Does the pt have substance abuse?: No - POLST Patient has POLST: No PD ED PE NORMAL - Vitals Vital signs reviewed: Yes - General General: Alert and oriented X 3, No acute distress, Well developed/nourished - HEENT HEENT: Atraumatic, PERRL, EOMI, Pharynx benign - Neck Neck: No bruit - Cardiac Cardiac: RRR, No murmur - Respiratory Respiratory: Clear bilaterally - Abdomen Abdomen: Soft, Non tender - Derm Derm: Normal color, Warm and dry - Extremities Extremities: No edema - Neuro Neuro: Alert and oriented X 3, change booth attendant 2-12 intact, No motor deficit, No sensory deficit, Normal speech Eye Opening: Spontaneous Motor: Obeys Commands Verbal: Oriented GCS Score: 15 Results - Vitals Vitals: Vital Signs - 24 hr 10/19/23 10/19/23 04:27 06:21 Temperature 36.3 C L Heart Rate 67 50 L Respiratory 20 17 Rate Blood Pressure 147/64 H 178/81 H O2 Saturation 96 95 Oxygen O2 Source Room air - Rads (name of study) head CT Relevant Findings:: Prelim report reviewed, Discussed with rads (subacute infarct right cerebellar area. Suggests MRI with and without.), EMP independent interpretation of test PD Medical Decision Making - ED course Complexity details: reviewed old records (Review of the EKG from 10/16/2022 showed normal sinus rhythm with a rate of 30 and no ectopy. Labs from that time were good. GFR was 70. I did not repeat labs today.), reviewed results (recent right cerebellar CVA per Radiology. Recommends MRI iwth/without contrast. I would add angio neck without to eval for LVO/stenosis. Pt is in NSR on ECG 3 days ago. Had labs with GFR 70. So did not repeat these. ), re-evaluated patient (I updated pt and friend on the results. They are agreeable to wait for MRI for more complete workup. ), considered differential, d/w patient Reviewed Lab Results: The patient had persistent headache dizziness and states some visual blurriness. This is associated with nausea and vomiting at the onset. We can do a CT to look for signs of acute structural abnormalities. The CT did show a likely subacute infarct in the right occipital area. It would be unusual to have persisting notable headache with this so concerns could be for underlying pathology leading to that. Radiology suggests MRI with and without. We should be able to order that within the next couple of hours and the patient is willing to stay for further workup. At this point we could discuss with the [facility] regarding bed availability but I will initiate ordering of the MRI. In conjunction I would do MR angio of the neck. ED course: I did talk with the patient and her friend. They are agreeable to further workup to include evaluation of the brain and angios of the neck and head via MRI. The ophthalmology surgical technician states he is able to get to the patient this morning. The patient was in sinus rhythm 3 days ago with a normal EKG. We will want to give her aspirin and Plavix because of the findings. We will see if there is any critical stenoses in the head or neck. It is change of shift and care was given over to Dr. Chase. Departure - Departure Clinical Impression: Dizziness Headache Qualifiers: Headache type: unspecified Headache chronicity pattern: acute headache Intractability: intractable Qualified Code(s): R51.9 - Headache, unspecified Nausea and vomiting Qualifiers: Vomiting type: unspecified Qualified Code(s): R11.2 - Nausea with vomiting, unspecified Cerebrovascular accident (CVA) Qualifiers: CVA mechanism: unspecified Qualified Code(s): I63.9 - Cerebral infarction, unspecified Condition: Stable Record reviewed to determine appropriate education?: Yes Forms: PCP List NIHSS - Level of Consciousness Level of consciousness: (0) Alert, Keenly responsive LOC Questions: (0) Answers both Q's correct LOC Commands: (0) Performs both correctly - Gaze Best Gaze: (0) Normal - Visual Visual: (0) No loss - Facial Palsy Facial Palsy: (0) Normal, symmetrical movement - Motor Arms (both separate) Motor Arm (right): (0) No drift Motor Arm (left): (0) No drift - Motor Legs (both separate) Motor Leg (right): (0) No drift Motor Leg (left): (0) No drift - Limb Ataxia Limb Ataxia: (0) Absent - Sensory Sensory: (0) Normal - Best Language Best Language: (0) No aphasia - Dysarthria Dysarthria: (0) Normal - Extinction and Inattention (formally neg Extinction and inattention: (0) No abnormality - Total Score/Results Total Score/Result: 0
[2023-10-19] MEDS ORDERED: NAPROXEN 250 MG TABLET PO STA (05:18)
[2023-10-19] MEDS ORDERED: HYDROcod/ACETAM 5/325 MG TABLET PO STA (05:18)
--- NOTE | 2023-10-19 07:32 | CT Report ---
PROCEDURE: Head WO INDICATIONS: headahce and dizziness for few days. TECHNIQUE: Noncontrast 4.5 mm thick angled axial sections acquired from the foramen magnum to the vertex. For r adiation dose reduction, the following was used: automated exposure control, adjustment of mA and/or kV according to patient size. COMPARISON: None. FINDINGS: Image quality: Excellent. CSF spaces: Basal cisterns are patent. No extra-axial fluid collections. Ventricles are normal in size and shape. Brain: There is a 2.6 cm hypodensity in the right cerebellar hemisphere. Small subtle hypodensity is noted in the left frontal lobe. No midline shift. No intracranial masses or hemorrhage. Alejandro-white matter interface is normal. Skull and face: Calvarium and visualized facial bones are intact, without suspicious lesions. Sinuses: Visualized sinuses and mastoids are clear. IMPRESSION: 1. There is a hypodensity in the right cerebellar hemisphere. Differential diagnoses include late sub acute infarct versus mass with vasogenic edema. Consider MRI with and without contrast for follow-up evaluation. 2. Subtle hypodensity in the left frontal white matter may be secondary to chronic small vessel ische blas change. This can be evaluated by MRI at the same time. No significant discrepancy with the preliminary interpretation. Reviewed by: Silverio Urena MD on 10/19/2023 7:31 AM [facility] Approved by: Silverio Urena MD on 10/19/2023 7:31 AM [facility] Station ID: [id number]
[2023-10-19] MEDS ORDERED: CLOPIDOGREL 75 MG TABLET PO STA (07:33)
[2023-10-19] MEDS ORDERED: GADOTERATE MEGLUMINE 10 MMOL/20 ML VIAL ONE (08:04)
[2023-10-19] MEDS ORDERED: GADOTERATE MEGLUMINE 10 MMOL/20 ML VIAL IVP ONE (10:33)
--- NOTE | 2023-10-19 11:03 | MRI Report ---
PROCEDURE: Brain W/WO INDICATIONS: recent CVA right occiput CONTRAST: clariscan 14ml TECHNIQUE: Noncontrast axial T1 spin echo, axial T2 fast spin echo, sagittal and axial FLAIR, coronal T2 fast sp in echo, axial gradient echo, axial diffusion and ADC through the brain. After the administration of contrast, axial and coronal T1 spin echo with fat saturation through the brain. COMPARISON: Correlation is made with the accompanying imaging, including the conus medullaris is per formed earlier in the day. FINDINGS: Image quality: Excellent. CSF spaces: Basal cisterns are patent. No extra-axial fluid collections. Ventricles are normal in size and shape. Brain: There is abnormal diffusion-weighted signal seen involving the medial inferior aspect of the right cerebellum. There is a small focus of abnormal diffusion weighted signal seen involving the pos terior left cerebellum. Associated abnormal dark signal can be seen on the accompanying ADC maps. Wit hin the right medial cerebellum, there is hemosiderin deposition seen. Developing T2-weighted signal can be seen at this site. No midline shift. No intracranial masses. No abnormal intracranial enhancement. There is cerebral volume loss for age. There is periventricular white matter chronic small vessel ischemic change. Th e brainstem appears normal. No chronic ischemic insults. Normal intravascular flow voids are presen t. Skull and face: Calvarial marrow is normal in signal. Orbits appear normal. Sinuses: Sinuses and mastoids appear clear. IMPRESSION: There is a subacute infarction seen involving the right medial cerebellum, with a small focus of subacute infarction involving the left posterior cerebellum. Hemosiderin deposition can be seen at this site, which is consistent with interval hemorrhage. No masses or abnormal enhancement can be seen. Note: Case discussed by telephone with Dr. Chase at 10:58 AM [place] time on 10/19/2023. Reviewed by: José Campos MD on 10/19/2023 10:01 AM [facility] Approved by: José Campso MD on 10/19/2023 10:01 AM [facility] Station ID: [id number]
--- NOTE | 2023-10-19 11:05 | MRI Report ---
PROCEDURE: ANGIO NECK W/WO INDICATIONS: recent CVA right occiput CONTRAST: clariscan 14ml TECHNIQUE: Axial and sagittal balanced GE through the neck. Coronal dynamic MRA after the administration of con trast in the arterial and venous phases, with rotating 3-dimensional maximum intensity projection (AR P) reformats constructed from subtraction images. COMPARISON: Correlation is made with the accompanying imaging. FINDINGS: Image quality: Excellent. Carotid system: Great vessels demonstrate a conventional anatomy as they arise from the aortic arch. The origins of the common carotid arteries appear normal. The calibers and courses of the common c arotid arteries are likewise normal. The carotid bifurcations appear normal bilaterally. The internal control specialist al carotid arteries are widely patent up to the [place]. 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 More d istally, there is some flow seen within the right vertebral artery. The flow within the left vertebra l artery is normal, with a normal-appearing left vertebral artery origin. Vertebral arteries join to form a normal appearing basilar artery. Miscellaneous: Subclavian arteries are patent throughout. Pre-contrast images through the neck demo nstrate no soft tissue abnormalities. 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 Note: Case discussed by telephone with Dr. Chase at 10:58 AM [place] time on 10/19/2023. Reviewed by: José Campos MD on 10/19/2023 10:04 AM [facility] Approved by: José Campos MD on 10/19/2023 10:04 AM [facility] Station ID: [id number]
--- NOTE | 2023-10-19 11:06 | MRI Report ---
PROCEDURE: Angio Head WO INDICATIONS: subacute right occipital CVA TECHNIQUE: Noncontrast axial 3-D [id number] MR angiogram, with 3-dimensional maximum intensity projection (M IP) reformats of the internal carotid arteries and posterior circulation then performed. COMPARISON: Correlation is made with the accompanying imaging. FINDINGS: Image quality: Diagnostic. Anterior circulation: Intracranial internal carotid arteries demonstrate normal size and intralumina l flow signal. The flow within the paired anterior cerebral arteries is normal and symmetric. The f low within the middle cerebral arteries is normal and symmetric. The anterior communicating artery i s seen. No stenoses, occlusions, or aneurysms. Posterior circulation: There is almost no flow seen within the right V4 segment. The flow within the left C4 segment is within normal limits. There is a normal appearing basilar artery. Incidental note is made of a prominent right posterior communicating artery, with a diminutive right P1 segment. This is attributed to a type origin of the right posterior cerebral artery, which i s considered to be a developmental variant of typically no clinical consequence. The flow within th e posterior cerebral arteries is normal and symmetric. No stenoses, occlusions, or aneurysms. IMPRESSION: Almost no flow is seen within the right V4 segment. Reviewed by: José Campos MD on 10/19/2023 10:05 AM [facility] Approved by: José Campos MD on 10/19/2023 10:05 AM [facility] Station ID: [id number]
[2023-10-19] MEDS ORDERED: ASPIRIN CHEW 81 MG TABLET PO STA (13:03)
[2023-10-19 13:14] LABS: ESTIMATED AVERAGE GLUCOSE 111 mg/dL (70-100); HEMOGLOBIN A1c% 5.5 % (4.27-6.07)
[2023-10-19] MEDS: ASPIRIN CHEW 81 MG TABLET PO STA ×2 (14:29→14:34)
[2023-10-19] MEDS ORDERED: ATORVASTATIN 40 MG TABLET PO STA (18:32)
--- NOTE | 2023-10-19 18:32 | ED Physician Documentation ---
ED Addendum - Addendum Addendum: 10/19/23 18:17 The patient was signed out to me at change of shift by Dr. Carmona, pending workup with MRIs/MRA after CT scan of the brain showed a subacute cerebellar infarct. The patient had fairly minimal symptoms and was able to ambulate to and from the bathroom while here. I had ordered an echocardiogram for the patient as well. The MRI and MRAs came back showing a subacute right cerebellar infarct with some petechial hemorrhage within the infarcted area. 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 The patient had received a dose of Plavix, but had stated a "allergy" to aspirin, which was nausea. I discussed the case with Dr. Villasenor, the stroke fellow at . She recommended observing the patient for another 24 hours to be sure she did not have any dysrhythmias. She also recommended checking an LDL and hemoglobin A1c. If the LDL is less than 70, the patient could stay on her current regimen of Lipitor, but if greater than 70, she recommended a atorvastatin 80 mg daily. She also recommended the echocardiogram which I had already ordered, but unfortunately, it did not get done for unclear reasons. The stroke fellow also recommended a PT consult while the patient is here. Due to a concern for possible abnormality of metabolism of Plavix and the patient's ethnic group, it was felt preferable that the patient be on aspirin. Since the patient does not have a true allergy and really has just had nausea with aspirin previously, Dr. Villasenor did recommend that the patient be on aspirin. However, despite explaining all this to the patient, the patient refused to take aspirin, stating that it "tears up her stomach". At this point in time, the patient is stable in the emergency department. No beds were available for admission at the time I talked to Dr. Villasenor, so we will try again to get her admitted later this evening. The patient is signed out to Dr. Carmona at change of shift, pending final disposition.
[2023-10-19] MEDS ORDERED: CLOPIDOGREL 300 MG TABLET PO STA (18:33)
[2023-10-19] MEDS ORDERED: ONDANSETRON 4 MG/2 ML VIAL IVP PRN (22:44)
[2023-10-19] MEDS ORDERED: SODIUM CHLORIDE FLUSH 0.9% 10 ML SYRINGE IVP PRN (22:44)
--- NOTE | 2023-10-19 22:50 | ED Physician Documentation ---
ED Addendum - Addendum Addendum: 10/19/23 22:47 The patient has remained stable on change of shift. She is on a heart monitor with normal sinus rhythm. Vitals are good. She is still undergoing full stroke workup. We do have beds available now at this time. I talked with the telemetry hospitalist who will write orders for the patient. The patient was diagnosed with an occipital stroke on the right. Further workup yet to be completed is echocardiogram and physical therapy consult and further telemetry monitoring overnight. Telemetry stroke neurology consulted earlier reportedly had approved use of Plavix. The patient is allergic to aspirin and declined getting it. The MRI apparently showed very small amount of hemorrhagic transformation with just trace of blood but the Plavix was still recommended. Also increasing the atorvastatin and moderate blood pressure control. Recommendation was for least 24 hours on monitor and the above noted PT and echo. She had undergone MRA of the neck and head so vascular study there is already been done. Disposition: The patient is placed in the hospital for further evaluation. Diagnoses: 1. Acute right cerebellar CVA 2. Ataxia's, dizziness 3. Headache 4. Nausea
--- NOTE | 2023-10-19 22:54 | HISTORY & PHYSICAL EXAMINATION ---
Chief Complaint - Chief Complaint Chief Complaint: Dizziness History of Present Illness - History of Present Illness HPI Comment/Other: 73 y old female with PMH HTN, hyperlipidemia presented to ER with c/o dizziness, nausea, headache for last 3-4 days. Denies numbness or weakness in arms or legs. Denies chest pain, SOB, Abdominal pain, symptoms CT head and MRI brain showed subacute cerebellar infract As per ER physician ( Dr Carmona), he consulted with Stroke neurology who recommended Plavix, atorvastain, Echo, tele and PT and admission to the hospital Pt is admitted due to subacute CVA, dizziness, weakness and ataxia History - Past Medical History Cardiovascular: reports: Hypertension Respiratory: reports: None Endocrine/Autoimmune: reports: None GI: reports: GERD : reports: None HEENT: reports: None Psych: reports: Anxiety Musculoskeletal: reports: None Derm: reports: None MRSA Hx?: No - Past Surgical History General: reports: Other - POLST Patient has POLST: No Meds/Allgy - Home Medications Home Medications: Ambulatory Orders Medication Instructions Recorded Confirmed Metoprolol Succinate [Toprol Xl] 25 mg PO DAILY 03/24/14 10/19/23 Omeprazole 1 mg PO DAILY 03/24/14 10/19/23 Potassium Chloride [Klor-Con M20] 1 meq PO DAILY 03/24/14 10/19/23 Furosemide [Lasix] 1 tab ORAL DAILY 01/02/21 10/19/23 Losartan [Cozaar] 1 tab ORAL DAILY 01/02/21 10/19/23 Ondansetron Odt [Zofran] 4 mg TL Q6H PRN #10 tablet 10/16/23 10/19/23 Atorvastatin [Lipitor] 1 tab PO DAILY PM 10/19/23 10/19/23 - Allergies Allergies/Adverse Reactions: Allergies Allergy/AdvReac Type Severity Reaction Status Date / Time aspirin AdvReac Emesis Verified 10/19/23 04:32 Review of Systems - Other Findings Other Findings: 10 point systems were reviewed and were negative except mentioned in HPI Exam - Vital Signs Vital Signs: Vital Signs x48h Pulse Resp BP Pulse Ox 10/19/23 20:00 66 16 132/72 H 95 10/19/23 18:00 59 L 16 139/72 H 94 10/19/23 16:15 63 16 108/92 H 96 - Physical Exam General Appearance: positive: No acute distress Eyes Bilateral: positive: Normal inspection ENT: positive: ENT inspection nml Neck: positive: Nml inspection Respiratory: positive: Chest non-tender Cardiovascular: positive: Regular rate & rhythm Abdomen: positive: Non-tender Skin: positive: No rash Extremities: positive: Non-tender Neurologic/Psychiatric: positive: Motor nml Conclusion/Plan - Other Other Results/Comments: A: Subacute CVA Dizziness Ataxia HTN Hyperlipidemia Plan: Admit in tele Echo Telemetry Start plavis 75 mg qd Atorvastatin 80 mg po qd Check lipid panel NPO Swallow eval PT/OT Allow permissive BP per neuro DVT prophylaxic: SCD Full code Pt is admitted as inpatient as more than 2 midnight stay is expected
[2023-10-19 23:47] LABS: CHOL/HDL RATIO 4.5 (<4.4); CHOLESTEROL 148 mg/dL; HDL CHOLESTEROL 33 mg/dL; LDL CHOLESTEROL,CALCULATED 72 mg/dL; LDL/HDL RATIO 2.2 (<4.4); TRIGLYCERIDES 213 mg/dL (48-352); VLDL CHOLESTEROL 43 mg/dL
[2023-10-20] MEDS: ACETAMINOPHEN 325 MG TABLET PO PRN ×2 (03:45→10:45)
[2023-10-20] MEDS: SODIUM CHLORIDE FLUSH 0.9% 10 ML SYRINGE IVP SCH ×3 (06:48→20:53)
--- NOTE | 2023-10-20 08:42 | PROVIDER PROGRESS NOTE ---
Assessment/Plan - Problem List (1) Cerebrovascular accident (CVA) Qualifiers: CVA mechanism: unspecified Qualified Code(s): I63.9 - Cerebral infarction, unspecified Assessment/Plan: Dizziness, nausea and ataxia were her presenting complaints Brain imaging showed a subacute CVA in the left cerebellum and right posterior cerebellum. Plan: Monitor for Afib, remain on telem Await Echo w/ bubble study result Cont daily Plavix. ASA was not advised by Neurol Cont Lipitor, dose it at night, not daytime Allow permissive HTN today yet. I will not resume her BP meds until tomorrow Do nursing swallow screen and start a cardiac diet if no swallow trouble Start PT and OT eval and treatment Anticipate DCh soon I updated the daughter, who was at bedside (2) HTN She was on Metoprolol and Losartan at home Plan: Obtain a CMP and CBC, they were not done at admission Allow permissive HTN today yet. I will not resume her BP meds until tomorrow (3) Hyperlipidemia She was on Lipitor at home. Her lipid panel was checked (all labs were reviewed) Plan: Cont high dose statin, and dose it at night, not daytime (4) Insomnia Pt is on Melatonin at home (I reviewed her reconciled med list). She is requesting a sleep aid, could not fall asleep last night Plan: Will start pham Ambien 5 mg po at hs, since we do not have Melatonin on hospital formulary - Current Meds Current Meds: Current Medications Generic Name Dose Route Start Last Admin Trade Name Freq PRN Reason Stop Dose Admin Acetaminophen 650 mg 10/20/23 03:25 10/20/23 03:45 Acetaminophen 325 Mg Tablet PO 650 mg Q6H PRN Administration Pain or Fever > 38C (100.4F) Sodium Chloride 10 ml 10/20/23 01:00 10/20/23 06:48 Sodium Chloride Flush 0.9% 10 Ml Syringe IVP 10 ml 0100,0900,1700 PHAM Administration - Lab Result Fish Bone Diagrams: 10/20/23 08:46 10/20/23 08:46 - Additional Planning My Orders: My Active Orders 10/20/23 CBC - COMP BLD CT W/AUTO DIFF [HEME] Urgent COMPREHENSIVE METABOLIC PANEL [CHEM] Urgent PT WITH INR [COAG] Urgent 10/20/23 08:30 Swallow Screen - Nursing [RC] ONCE 10/20/23 09:00 Omeprazole [Omeprazole] 1 mg PO DAILY 10/20/23 Lunch DIET [Cardiac Diet] [DIET] 10/20/23 21:00 Atorvastatin [Lipitor] 80 mg PO QPM 10/21/23 05:00 BMP - BASIC METABOLIC PANEL [CHEM] DAILYLAB CALCIUM [CHEM] DAILYLAB CBC - COMP BLD CT W/AUTO DIFF [HEME] DAILYLAB MAGNESIUM [CHEM] DAILYLAB PHOSPHORUS [CHEM] DAILYLAB 10/21/23 09:00 Losartan [Cozaar] 50 mg PO DAILY Metoprolol Succinate [Toprol Xl] 25 mg PO DAILY Subjective - Subjective Patient Reports: Feeling Better (No more nausea or dizziness but still has a headache. Describes left leg tingling occasionally) Objective Vital Signs: Vital Signs - 24 hr 10/19/23 10/19/23 10/19/23 10:50 12:00 14:00 Temperature Heart Rate 50 L 55 L 57 L Heart Rate [ Brachial] Respiratory 16 15 18 Rate Blood Pressure 150/70 H 173/81 H 145/80 H Blood Pressure [Left Brachial artery] Blood Pressure [Right Brachial artery] O2 Saturation 97 97 96 10/19/23 10/19/23 10/19/23 16:15 18:00 20:00 Temperature Heart Rate 63 59 L 66 Heart Rate [ Brachial] Respiratory 16 16 16 Rate Blood Pressure 108/92 H 139/72 H 132/72 H Blood Pressure [Left Brachial artery] Blood Pressure [Right Brachial artery] O2 Saturation 96 94 95 10/19/23 10/20/23 10/20/23 23:00 00:15 05:09 Temperature 37.0 C 37.1 C Heart Rate 65 Heart Rate [ 73 61 Brachial] Respiratory 17 20 18 Rate Blood Pressure 159/78 H Blood Pressure 111/59 L [Left Brachial artery] Blood Pressure 141/76 H [Right Brachial artery] O2 Saturation 96 95 97 10/20/23 08:00 Temperature 37.4 C Heart Rate Heart Rate [ 78 Brachial] Respiratory 20 Rate Blood Pressure Blood Pressure 118/70 [Left Brachial artery] Blood Pressure [Right Brachial artery] O2 Saturation 97 Oxygen O2 Source Room air General: Alert, Oriented x3, No acute distress HEENT: EOMI, Mucous membr. moist/pink Neck: Supple Neuro: Alert, Non Focal Cardiovascular: Regular rate, No murmurs Respiratory: No respiratory distress, Breath sounds nml Abdomen: Normal bowel sounds, Soft, No tenderness Extremities: No clubbing, No edema, No tenderness/swelling - Results Results: Laboratory Results Estimat Average Glucose 111 mg/dL (70-100) H 10/19/23 12:31 Hemoglobin A1c % 5.5 % (4.27-6.07) 10/19/23 12:31 Triglycerides 213 mg/dL (48-352) 10/19/23 23:25 Cholesterol 148 mg/dL (-200) 10/19/23 23:25 LDL Cholesterol Direct 76 mg/dL (75-193) 10/19/23 12:31 LDL Cholesterol, Calc 72 mg/dL (-129) 10/19/23 23:25 VLDL Cholesterol 43 mg/dL 10/19/23 23:25 HDL Cholesterol 33 mg/dL (60-) L 10/19/23 23:25 LDL/HDL Ratio 2.2 (<4.4) 10/19/23 23:25 Cholesterol/HDL Ratio 4.5 (<4.4) 10/19/23 23:25 - Procedures Procedures: Procedures EXCISION OF UTERUS, ENDO (01/02/21) INSPECTION OF LOWER INTESTINAL TRACT, ENDO (07/06/16)
[2023-10-20 08:52] LABS: BASOPHILS # (AUTO) 0.1 10^3/uL (0.0-0.1); BASOPHILS % (AUTO) 0.9 %; EOSINOPHILS # (AUTO) 0.2 10^3/uL (0.0-0.7); EOSINOPHILS % (AUTO) 2.6 %; HCT - HEMATOCRIT 38.3 % (37.0-47.0); HGB - HEMOGLOBIN 12.9 g/dL (12.0-16.0); LYMPHOCYTES # (AUTO) 3.3 10^3/uL (1.5-3.5); LYMPHOCYTES % (AUTO) 46.5 %; MEAN CORPUSCULAR HEMOGLOBIN 33.1 pg (27.0-31.0); MEAN CORPUSCULAR HGB CONC 33.7 g/dL (32.0-36.0); MEAN CORPUSCULAR VOLUME 98.2 fL (81.0-99.0); MEAN PLATELET VOLUME 10.1 fL (7.9-10.8); MONOCYTES # (AUTO) 0.5 10^3/uL (0.0-1.0); MONOCYTES % (AUTO) 7.4 %; NEUTROPHILS % (AUTO) 42.5 %; PLT - PLATELET COUNT 208 10^3/uL (130-450); RED CELL DISTRIBUTION WIDTH 11.7 % (12.0-15.0)
[2023-10-20] MEDS ORDERED: ASPIRIN EC 81 MG TABLET PO SCH (09:00)
[2023-10-20] MEDS ORDERED: ATORVASTATIN 40 MG TABLET PO SCH ×2 (09:00→21:00)
[2023-10-20 09:05] LABS: INR 1.1 (0.8-1.2)
[2023-10-20 09:10] LABS: ALBUMIN 3.7 g/dL (3.2-5.5); ALBUMIN/GLOBULIN RATIO 1.5 (1.0-2.2); BILIRUBIN,TOTAL 0.8 mg/dL (0.2-1.0); CALCIUM 8.9 mg/dL (8.5-10.3); CREATININE 0.6 mg/dL (0.6-1.3); POTASSIUM 3.5 mmol/L (3.5-4.5); TOTAL PROTEIN 6.1 g/dL (6.4-8.9)
[2023-10-20] MEDS: CLOPIDOGREL 75 MG TABLET PO SCH (10:43)
--- NOTE | 2023-10-20 15:44 | PHARMACY PROGRESS NOTE ---
- Best Possible Medication History Admit Date and Time: 10/19/23 4137 Processed by: Pharmacy Medication History completed: Yes Patient Interview: Completed Secondary Source(s): Insurance records As the person ultimately responsible for medication therapy, providers are able to order a medication from an existing home medication list in [facility] via the "Reconcile Routine" prior to Confirmation of that medication by office support clerk. Such practice is discouraged except when the physician, in their clinical judgment, deems that a medical need exists for a medication without regard to previous use.
[2023-10-20] MEDS ORDERED: ZOLPIDEM 5 MG TABLET PO SCH (21:00)
[2023-10-21] MEDS: SODIUM CHLORIDE FLUSH 0.9% 10 ML SYRINGE IVP SCH ×2 (01:30→08:12)
[2023-10-21 06:13] LABS: BASOPHILS # (AUTO) 0.1 10^3/uL (0.0-0.1); BASOPHILS % (AUTO) 1.1 %; EOSINOPHILS # (AUTO) 0.3 10^3/uL (0.0-0.7); EOSINOPHILS % (AUTO) 5.2 %; HCT - HEMATOCRIT 36.8 % (37.0-47.0); HGB - HEMOGLOBIN 12.6 g/dL (12.0-16.0); LYMPHOCYTES % (AUTO) 45.4 %; MEAN CORPUSCULAR HEMOGLOBIN 33.6 pg (27.0-31.0); MEAN CORPUSCULAR HGB CONC 34.2 g/dL (32.0-36.0); MEAN CORPUSCULAR VOLUME 98.1 fL (81.0-99.0); MEAN PLATELET VOLUME 10.3 fL (7.9-10.8); MONOCYTES # (AUTO) 0.5 10^3/uL (0.0-1.0); MONOCYTES % (AUTO) 7.3 %; NEUTROPHILS # (AUTO) 2.7 10^3/uL (1.5-6.6); NEUTROPHILS % (AUTO) 40.8 %; PLT - PLATELET COUNT 214 10^3/uL (130-450); RED BLOOD COUNT 3.75 10^6/uL (4.20-5.40); RED CELL DISTRIBUTION WIDTH 11.8 % (12.0-15.0); WHITE BLOOD COUNT 6.6 x10^3/uL (4.8-10.8)
[2023-10-21 06:29] LABS: CREATININE 0.7 mg/dL (0.6-1.3); PHOSPHORUS 3.4 mg/dL (2.5-5.0); POTASSIUM 3.8 mmol/L (3.5-4.5)
[2023-10-21] MEDS ORDERED: PANTOPRAZOLE 40 MG TABLET PO SCH (07:00)
[2023-10-21] MEDS: CLOPIDOGREL 75 MG TABLET PO SCH (08:12)
[2023-10-21] MEDS ORDERED: LOSARTAN 50 MG TABLET PO SCH (09:00)
[2023-10-21] MEDS ORDERED: METOPROLOL SUCCINATE 25 MG TABLET PO SCH (09:00)
[2023-10-21 10:05] VITALS: BP 122/70; O2SAT 96
--- NOTE | 2023-10-21 11:12 | Discharge Plan ---
Discharge Plan Problem Reviewed?: Yes Disposition: Home, Self Care Condition: Fair Prescriptions: Atorvastatin [Lipitor] 80 mg PO QPM #60 tab Clopidogrel [Plavix] 75 mg PO DAILY #30 tab Diet: Cardiac (Low cholesterol and low salt diet) Activity Restrictions: Activity as Tolerated Shower Restrictions: No Assistance Devices: Walker Instruction Topics: Stroke Prepare Home After, Stroke Self Care Health Concerns: You were hospitalized to evaluate and treat a stroke. The stroke was caused by a blockage of an artery of your brain. You had (an unexpected) rapid recovery, and our Physical Therapist and Occupational Therapist okayed that you may be discharged to home, and do not need rehab at a [facility]. You are being discharged home today, on new medication (Plavix), and higher dose of your Atorvastatin. The new prescriptions were electronically sent to your [facility] in [place]. Your other medicines you took before hospitalization can be resumed. Please see your Primary Care Provider in the next 7 to 10 days for hospital follow-up office visit. When you make the appointment, tell them you were an Inpatient. Plan of Treatment: As above. Care Goals: Improvement in symptoms and stabilization are the goals. Assessment: The patient, and daughter at bedside, understand and are agreeable with the plan. Additional Instructions or Follow Up instructions: If you have new or worsening symptoms, call your Primary Care Provider for advice, or call an ambulance and come to the ER. No Smoking: If you smoke, Please STOP! Call for help. Follow-up with: Radha Rivero PA-C [Provider Admit Priv/Credential] -
--- NOTE | 2023-10-21 11:19 | DISCHARGE SUMMARY ---
Discharge Summary Admit Date: 10/19/23 Discharge Date: 10/21/23 Discharging Provider: Yuly Jimenez MD Primary Care Provider: SOSA Barcenas Condition at Discharge: Fair Discharge Disposition: 01 Home, Self Care - HPI History of Present Illness: 73 y old female with PMH of HTN, hyperlipidemia presented to ER with c/o dizziness, nausea, headache for last 3-4 days. Denies numbness or weakness in arms or legs. Denies chest pain, SOB, Abdominal pain, symptoms CT head and MRI brain showed subacute cerebellar infract The ER physician consulted with Stroke Neurology who recommended Plavix, atorvastain, Echo, telemetry and Physical Therapy eval and admission to this hos pital. Pt will be admitted due to a completed subacute CVA, causing dizziness, weakness, ataxia and headache. - HOSPITAL COURSE Hospital Course: (1) Cerebrovascular accident (CVA) Dizziness, nausea, ataxia and a headache were her presenting complaints. Brain imaging showed a subacute CVA in the left cerebellum and right posterior cerebellum. She was put on Plavix as advised by Stroke Neuro. I suspect she should be on Plavix for 3 months, then be switched to 1 baby aspirin daily and be on ASA lifelong. Telemetry showed PVCs, but no episodes of Afib. Her Echo w/ bubble study was essentially normal, no clot no PFO seen. Her Lipitor was maximized. We allowed permissive HTN for a day, then resumed her BP meds. She was evaluated by PT and OT who noted that she had recovered back to her baseline, and no rehab at a SNF was recommended. Her headache also resolved. She was able to be discharged home. (2) PVD Her neck imaging showed near complete occlusion of a vertebral artery. There is some collateral flow described. She needs continued treatment of hypertension, hyperlipidemia and continue using Plavix. (3) HTN She was on Metoprolol and Losartan at home. We allowed permissive HTN for a day before resuming her BP meds (4) Hyperlipidemia She was on Lipitor 40 at home and despite an LDL <100, she had this CVA. She was put on Lipitor 80 mg qpm, as advised by Stroke Neuro. (5) Insomnia Pt is on Melatonin at home. We ordered Ambien 5 mg po at hs, since we do not have Melatonin on hospital formulary. - ALLERGIES Allergies/Adverse Reactions: Allergies Allergy/AdvReac Type Severity Reaction Status Date / Time aspirin AdvReac Emesis Verified 10/19/23 04:32 - MEDICATIONS Home Medications: Ambulatory Orders Medication Instructions Recorded Confirmed Potassium Chloride [Klor-Con M20] 20 meq PO DAILY 03/24/14 10/20/23 Furosemide [Lasix] 20 mg ORAL DAILY 01/02/21 10/20/23 Losartan [Cozaar] 50 mg ORAL DAILY 01/02/21 10/20/23 Atorvastatin [Lipitor] 10 mg PO DAILY PM 10/19/23 10/20/23 Metoprolol Tartrate [Lopressor] 25 mg PO DAILY 10/20/23 10/20/23 Atorvastatin [Lipitor] 80 mg PO QPM #60 tab 10/21/23 Clopidogrel [Plavix] 75 mg PO DAILY #30 tab 10/21/23 - PHYSICAL EXAM AT DISCHARGE General Appearance: positive: No acute distress, Alert Eyes Bilateral: positive: Normal inspection, EOMI ENT: positive: ENT inspection nml, No signs of dehydration Neck: positive: Nml inspection, No JVD Respiratory: positive: No respiratory distress, Breath sounds nml Cardiovascular: positive: Regular rate & rhythm, No murmur Abdomen: positive: Non-tender, No distention, Other (Obese) Skin: positive: Warm, Dry Extremities: positive: Non-tender, No pedal edema Neurologic/Psychiatric: positive: Oriented x3, CN's nml (2-12), Motor nml - LABS Result Diagrams: 10/21/23 05:47 10/21/23 05:47 - FOLLOW UP Follow Up: See PCP for a hospital F/U visit in 7-10 days. - TIME SPENT Time Spent in Discharge (Minutes): 40
== END 2023-10-21 13:30 | disposition home or self-care (01) | DRG 66 ==
LOC: ED 04:19 → MS2 22:45
PROVIDERS: ADMIT Internal Medicine; ATTEND Internal Medicine
DX: I63.9 Cerebral infarction, unspecified (principal); R27.0 Ataxia, unspecified; I10 Essential (primary) hypertension; H53.8 Other visual disturbances; R51.9 Headache, unspecified; R42 Dizziness and giddiness; R11.2 Nausea with vomiting, unspecified; R29.700 NIHSS score 0; E78.5 Hyperlipidemia, unspecified; I73.9 Peripheral vascular disease, unspecified; I65.09 Occlusion and stenosis of unspecified vertebral artery; G47.00 Insomnia, unspecified
CPT/HCPCS: 36415; 70450; 70544; 70549; 70553; 80048; 80053; 80061; 83036; 83721; 83735; 84100; 85025; 85610; 93306; 97161; 97165; 99285; A9270; A9575

== ENCOUNTER 2024-04-28 08:00 | Outpatient (CLI) | payer MEDICARE ==
[2024-04-28 21:26] LABS: BACTERIAL VAGINOSIS DNA NEGATIVE (NEGATIVE); CANDIDA GLABRATA DNA NEGATIVE (NEGATIVE); CANDIDA GROUP DNA NEGATIVE (NEGATIVE); CANDIDA KRUSEI DNA NEGATIVE (NEGATIVE); TRICHOMONAS VAGINALIS DNA NEGATIVE (NEGATIVE)
== END 2024-04-28 23:59 | disposition home or self-care (01) ==
LOC: LAB.N 08:00
PROVIDERS: ATTEND Physician Assistant
DX: N95.2 Postmenopausal atrophic vaginitis (principal)
CPT/HCPCS: 81514